=== PATIENT | female | born 1955 | race Caucasian/White ===

== ENCOUNTER 2017-06-22 10:53 | Inpatient (IN) | payer OTHER ==
[2017-06-22] MEDS ORDERED: SODIUM CHLORIDE 0.9% 500 ML IV STA (11:10)
--- NOTE | 2017-06-22 11:40 | ED ---
General Adult HPI - General Chief complaint: Altered Mental Status Stated complaint: Altered Mental status Time Seen by Provider: 06/22/17 10:55 Source: patient, EMS, RN notes reviewed Mode of arrival: EMS Limitations: no limitations - History of Present Illness Initial comments: This is a 61-year-old female with us past medical history significant for smoking. Patient states she was at home and she lost the ability to express her so she was able to get out a few words but was not able to complete a full sentence. Patient states this lasted for a good 15 or so minutes but never completely resolved. Patient states he continues even now she is taking longer to figure out the words to express herself even though she is able to eventually get those words out. Patient denies any slurred speech. Patient denies any headache patient denies any numbness or any weakness. Patient denies any visual disturbance. Patient denies any chest pain palpitations difficulty breathing shortness of breath. Patient denies abdominal pain patient denies nausea vomiting diarrhea. Patient denies any recent fever chills or cough. Patient denies any similar symptoms in the past. - Related Data Home Medications Medication Instructions Recorded Confirmed ALPRAZolam [Xanax] 0.5 mg PO TID PRN 06/22/17 06/22/17 Biotin 5 mg PO DAILY 06/22/17 06/22/17 Cholecalciferol [Vitamin D3] 1,000 unit PO DAILY 06/22/17 06/22/17 Allergies Allergy/AdvReac Type Severity Reaction Status Date / Time nitrofurantoin Allergy Rash/Hives Verified 06/22/17 11:27 [From Macrobid] Review of Systems ROS Statement: Those systems with pertinent positive or pertinent negative responses have been documented in the HPI. ROS Other: All systems not noted in ROS Statement are negative. Past Medical History Past Medical History: Cancer, GERD/Reflux, Hyperlipidemia, Osteoarthritis (OA) Additional Past Medical History / Comment(s): Breast Cancer 1994, lymphedema left arm History of Any Multi-Drug Resistant Organisms: None Reported Past Surgical History: Breast Surgery, Tonsillectomy Additional Past Surgical History / Comment(s): ACL repair on right knee, Breast Implants, Left sided mastectomy, colonoscopy Past Psychological History: Anxiety Smoking Status: Current every day smoker Past Alcohol Use History: Occasional General Exam - General Exam Comments Initial Comments: GENERAL: Patient is well-developed and well-nourished. Patient is nontoxic and well- hydrated and is in no acute distress. ENT: Neck is soft and supple. No significant lymphadenopathy is noted. Oropharynx is clear. Moist mucous membranes. Neck has full range of motion without eliciting any pain. EYES: The sclera were anicteric and conjunctiva were pink and moist. Extraocular movements were intact and pupils were equal round and reactive to light. Eyelids were unremarkable. PULMONARY: Unlabored respirations. Good breath sounds bilaterally. No audible rales rhonchi or wheezing was noted. CARDIOVASCULAR: There is a regular rate and rhythm without any murmurs gallops or rubs. ABDOMEN: Soft and nontender with normal bowel sounds. No palpable organomegaly was noted. There is no palpable pulsatile mass. SKIN: Skin is clear with no lesions or rashes and otherwise unremarkable. NEUROLOGIC: Patient is alert and oriented x3. Cranial nerves II through XII are grossly intact. Motor and sensory are also intact. Normal speech, volume and content. Symmetrical smile. Cerebellar testing is normal bilaterally MUSCULOSKELETAL: Normal extremities with adequate strength and full range of motion. LYMPHATICS: No significant lymphadenopathy is noted PSYCHIATRIC: Normal psychiatric evaluation. Normal interpersonal interactions appears functionally intact in deals appropriately with others. No signs of depression Limitations: no limitations Course Vital Signs 06/22/17 06/22/17 06/22/17 10:56 11:09 11:18 Temperature 96.8 F L Pulse Rate 67 66 70 Respiratory 16 16 16 Rate Blood Pressure 157/91 155/94 161/99 O2 Sat by Pulse 100 100 100 Oximetry 06/22/17 11:48 Temperature Pulse Rate 63 Respiratory 16 Rate Blood Pressure 155/93 O2 Sat by Pulse 100 Oximetry Medical Decision Making - Medical Decision Making EKG shows normal sinus rhythm at 67 bpm TX interval is 172 QRS is 88 QT interval 448 QTC is 473. Patient's EKG shows no ST segment elevation or depression or T wave abnormalities are noted. Patient's CAT scan of the head shows no acute abnormality. Chest x-ray shows no acute normalities. I spoke with Dr. Rutledge agreed to admit the patient admitted the patient I consult the neurology - Lab Data Result diagrams: 06/22/17 11:55 06/22/17 11:55 Lab Results 06/22/17 06/22/17 06/22/17 Range/Units 11:55 11:55 11:55 WBC 8.4 (3.8-10.6) k/uL RBC 4.99 (3.80-5.40) m/uL Hgb 14.6 (11.4-16.0) gm/dL Hct 46.4 H (34.0-46.0) % MCV 92.9 (80.0-100.0) fL MCH 29.2 (25.0-35.0) pg MCHC 31.5 (31.0-37.0) g/dL RDW 13.8 (11.5-15.5) % Plt Count 208 (150-450) k/uL Neutrophils % 64 % Lymphocytes % 29 % Monocytes % 4 % Eosinophils % 1 % Basophils % 1 % Neutrophils # 5.4 (1.3-7.7) k/uL Lymphocytes # 2.5 (1.0-4.8) k/uL Monocytes # 0.3 (0-1.0) k/uL Eosinophils # 0.1 (0-0.7) k/uL Basophils # 0.1 (0-0.2) k/uL PT 10.1 (9.0-12.0) sec INR 1.0 (<1.2) APTT 24.8 (22.0-30.0) sec Sodium 142 (137-145) mmol/L Potassium 4.2 (3.5-5.1) mmol/L Chloride 110 H (98-107) mmol/L Carbon Dioxide 24 (22-30) mmol/L Anion Gap 8 mmol/L BUN 10 (7-17) mg/dL Creatinine 0.75 (0.52-1.04) mg/dL Est GFR (MDRD) Af Amer >60 (>60 ml/min/1.73 sqM) Est GFR (MDRD) Non-Af >60 (>60 ml/min/1.73 sqM) Glucose 93 (74-99) mg/dL Calcium 9.7 (8.4-10.2) mg/dL Total Bilirubin 0.3 (0.2-1.3) mg/dL AST 25 (14-36) U/L ALT 28 (9-52) U/L Alkaline Phosphatase 87 (38-126) U/L Total Creatine Kinase (30-135) U/L CK-MB (CK-2) (0.0-2.4) ng/mL CK-MB (CK-2) Rel Index Troponin I (0.000-0.034) ng/mL Total Protein 6.8 (6.3-8.2) g/dL Albumin 4.0 (3.5-5.0) g/dL 06/22/17 Range/Units 11:55 WBC (3.8-10.6) k/uL RBC (3.80-5.40) m/uL Hgb (11.4-16.0) gm/dL Hct (34.0-46.0) % MCV (80.0-100.0) fL MCH (25.0-35.0) pg MCHC (31.0-37.0) g/dL RDW (11.5-15.5) % Plt Count (150-450) k/uL Neutrophils % % Lymphocytes % % Monocytes % % Eosinophils % % Basophils % % Neutrophils # (1.3-7.7) k/uL Lymphocytes # (1.0-4.8) k/uL Monocytes # (0-1.0) k/uL Eosinophils # (0-0.7) k/uL Basophils # (0-0.2) k/uL PT (9.0-12.0) sec INR (<1.2) APTT (22.0-30.0) sec Sodium (137-145) mmol/L Potassium (3.5-5.1) mmol/L Chloride (98-107) mmol/L Carbon Dioxide (22-30) mmol/L Anion Gap mmol/L BUN (7-17) mg/dL Creatinine (0.52-1.04) mg/dL Est GFR (MDRD) Af Amer (>60 ml/min/1.73 sqM) Est GFR (MDRD) Non-Af (>60 ml/min/1.73 sqM) Glucose (74-99) mg/dL Calcium (8.4-10.2) mg/dL Total Bilirubin (0.2-1.3) mg/dL AST (14-36) U/L ALT (9-52) U/L Alkaline Phosphatase (38-126) U/L Total Creatine Kinase 108 (30-135) U/L CK-MB (CK-2) 1.0 (0.0-2.4) ng/mL CK-MB (CK-2) Rel Index 0.9 Troponin I <0.012 (0.000-0.034) ng/mL Total Protein (6.3-8.2) g/dL Albumin (3.5-5.0) g/dL Disposition Clinical Impression: TIA (transient ischemic attack) Disposition: ADMITTED IP TO THIS HOSP Referrals: Gagandeep Mayen MD [Primary Care Provider] - 1-2 days Time of Disposition: 13:09
--- NOTE | 2017-06-22 11:45 | CT ---
EXAMINATION TYPE: CT brain wo con DATE OF EXAM: 06/22/2017 COMPARISON: NONE INDICATION: Patient complains of aphasia. DLP: 972 mGycm, Automated exposure control for dose reduction was used. CONTRAST: None CT of the brain is performed utilizing 3 mm thick sections through the posterior fossa and 3 mm thick sections through the remaining calvarium. Study is performed within 24 hours of arrival to the hosp ital. No abnormal hyperdensity is present to suggest an acute intracranial hemorrhage. No mass lesion is evident. No acute infarcts are evident. Ventricles and sulci are appropriate for the patient age. Paranasal sinuses and mastoid air cells within the [id number] are clear. There may be some edema arachnoid granulations within the posterior calvarium IMPRESSIONS: 1. Normal CT Brain
--- NOTE | 2017-06-22 11:59 | XR ---
EXAMINATION TYPE: XR chest 2V DATE OF EXAM: 06/22/2017 COMPARISON: NONE HISTORY: Altered mental status and weakness TECHNIQUE: Frontal and lateral views of the chest are obtained. FINDINGS: There is no focal air space opacity, pleural effusion, or pneumothorax seen. The cardiac silhouette size is within normal limits. The osseous structures are intact. There is pulmonary hype rinflation, flattening the diaphragms and increased anterior posterior diameter of the chest compatib le with underlying COPD. Possible pleural thickening is seen along the left lateral midlung. IMPRESSION: 1. No acute cardiopulmonary process. 2. Possible pleural thickening along the left lateral midlung. Nonemergent CT could be performed for further evaluation. 3. Radiographic sequela of COPD.
[2017-06-22 12:10] LABS: Basophils # (A) 0.1 k/uL (0-0.2); Basophils % (A) 1 %; Eosinophils # (A) 0.1 k/uL (0-0.7); Eosinophils % (A) 1 %; HCT 46.4 % (34.0-46.0); HGB 14.6 gm/dL (11.4-16.0); Lymphocytes # (A) 2.5 k/uL (1.0-4.8); Lymphocytes % (A) 29 %; MCH 29.2 pg (25.0-35.0); MCHC 31.5 g/dL (31.0-37.0); MCV 92.9 fL (80.0-100.0); Mean Platelet Volume 7.5; Monocytes # (A) 0.3 k/uL (0-1.0); Monocytes % (A) 4 %; Neutrophils # (A) 5.4 k/uL (1.3-7.7); Neutrophils % (A) 64 %; Platelet Count 208 k/uL (150-450); RBC 4.99 m/uL (3.80-5.40); RDW 13.8 % (11.5-15.5); WBC 8.4 k/uL (3.8-10.6)
[2017-06-22 12:26] LABS: ALT 28 U/L (9-52); AST 25 U/L (14-36); Alkaline Phosphatase 87 U/L (38-126); Anion Gap 8 mmol/L; Blood Urea Nitrogen 10 mg/dL (7-17); Calcium 9.7 mg/dL (8.4-10.2); Carbon Dioxide 24 mmol/L (22-30); Chloride 110 mmol/L (98-107); Glucose 93 mg/dL (74-99); Potassium 4.2 mmol/L (3.5-5.1); Sodium 142 mmol/L (137-145); Total Bilirubin 0.3 mg/dL (0.2-1.3); Total Protein 6.8 g/dL (6.3-8.2)
[2017-06-22 12:31] LABS: Creatine Kinase 108 U/L (30-135)
[2017-06-22 12:32] LABS: Partial Thromboplastin Time 24.8 sec (22.0-30.0); Prothrombin Time 10.1 sec (9.0-12.0)
[2017-06-22 12:44] LABS: Troponin I <0.012 ng/mL (0.000-0.034)
[2017-06-22] MEDS ORDERED: RX INFO: IV CONTRAST WAS GIVEN 1 EACH MISC MISCELLANE PRN (16:51)
--- NOTE | 2017-06-22 17:07 | P.CNNES ---
History of Present Illness Consult date: 06/22/17 History of Present Illness: Patient is a 61-year-old left-handed white female Who woke up with pressure behind the left eye this morning. She wakes up around 6 AM. She also noticed some left neck tenderness. She spoke to her daughter on 7:20 AM and her daughter noticed that her speech was not right. states she had difficulty finding the right words. She came to the emergency room room around 10:30 AM. She denies any headache dizziness or focal weakness numbness visual complaint. He denies having any such language disturbance in the past. She had a CAT scan of the brain in the emergency room which was negative. The patient and her states her speech has improved since this morning. However it is still not back to its normal baseline Review of Systems Constitutional: Denies chills, Denies fever Eyes: denies blurred vision, denies pain Cardiovascular: Denies chest pain, Denies shortness of breath Respiratory: Denies cough Musculoskeletal: Denies myalgias Neurological: Denies numbness, Denies weakness Psychiatric: Denies anxiety, Denies depression Past Medical History Past Medical History: Cancer, GERD/Reflux, Hyperlipidemia, Osteoarthritis (OA) Additional Past Medical History / Comment(s): Breast Cancer 1994, lymphedema left arm, osteoporsis, kidney stone. 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), bronchitis History of Any Multi-Drug Resistant Organisms: None Reported Past Surgical History: Breast Surgery, Tonsillectomy Additional Past Surgical History / Comment(s): Breast Implants 3 times on lt and once on rt, Left sided mastectomy, colonoscopy/polyp-benign, 2008 knee arthroscopy, 2012 rt knee arthroscopy/partial meniscectomy Past Anesthesia/Blood Transfusion Reactions: Postoperative Nausea & Vomiting ( PONV) Smoking Status: Current every day smoker - Past Family History Father Family Medical History: No Reported History Medications and Allergies Home Medications Medication Instructions Recorded Confirmed Type ALPRAZolam [Xanax] 0.5 mg PO TID PRN 06/22/17 06/22/17 History Biotin 5 mg PO DAILY 06/22/17 06/22/17 History Cholecalciferol [Vitamin D3] 1,000 unit PO DAILY 06/22/17 06/22/17 History Cyclobenzaprine [Flexeril] 5 mg PO HS PRN 06/22/17 06/22/17 History Diazepam [Valium] 5 mg PO BID PRN 06/22/17 06/22/17 History PARoxetine [Paxil] 10 mg PO DAILY 06/22/17 06/22/17 History Allergies Allergy/AdvReac Type Severity Reaction Status Date / Time nitrofurantoin Allergy Rash/Hives Verified 06/22/17 11:27 [From Macrobid] Physical Examination - Vital Signs Vital Signs: Vital Signs Temp Pulse Pulse Resp BP BP Pulse Ox 06/22/17 16:47 66 16 138/70 98 06/22/17 15:53 68 16 152/86 100 06/22/17 14:41 64 16 167/94 98 06/22/17 14:00 67 16 198/87 98 06/22/17 13:00 73 16 186/79 98 06/22/17 12:48 60 16 155/91 98 06/22/17 11:48 63 16 155/93 100 06/22/17 11:18 70 16 161/99 100 06/22/17 11:09 66 16 155/94 100 06/22/17 10:56 96.8 F L 67 16 157/91 100 Intake and Output 06/22/17 06/22/17 06/22/17 06:59 14:59 22:59 Other: Weight 55.338 kg Patient Weight 06/23/17 06:59 Weight 55.338 kg - Constitutional General appearance: thin - EENT EENT: PERRL, hearing intact, vision intact - Respiratory Respiratory: lungs clear - Cardiovascular Cardiovascular: regular rate, normal S1, normal S2 - Integumentary Integumentary: normal - Neurologic Cranial nerve examination: PERRL, EOMI, VFF, V1/V2/V3 grossly intact (Mild expressive aphasia), face symmetric, tongue midline Detailed motor examination: grossly full strength in all extremities Detailed sensory examination: intact Reflexes: 2+: knee - Psychiatric Psychiatric: mood/affect appropriate Results - Laboratory Findings CBC and BMP: 06/22/17 11:55 06/22/17 11:55 Abnormal Lab Findings: Abnormal Labs 06/22/17 06/22/17 11:55 11:55 Hct 46.4 H Chloride 110 H Assessment and Plan (1) Stroke Current Visit: Yes Status: Acute SNOMED Code(s): 095028655 Plan: The patient has been admitted to the hospital with speech disturbance. On neurologic examination the patient has a mild expressive aphasia. For the most part her speech is fluent however she has moments of hesitant speech The patient may have had a left subcortical infarct. Recommend start aspirin 325 mg daily. Recommend CTA of the neck and head. Recommend echocardiogram. Recommend MRI scan of the brain with and without gadolinium. Continue close neuro checks. The patient's main risk factor for stroke is [id number] history of smoking.
[2017-06-22] MEDS: ASPIRIN 325 MG TAB PO SCH (17:19)
[2017-06-22] MEDS ORDERED: ALPRAZolam 0.5 MG TAB PO PRN (20:18)
--- NOTE | 2017-06-22 20:35 | CT ---
EXAMINATION TYPE: CT angio head neck DATE OF EXAM: 06/22/2017 HISTORY: Patient complains of aphasia COMPARISON: NONE CT DLP: 252.4 mGycm. Automated Exposure Control for Dose Reduction was Utilized. TECHNIQUE: CTA scan of the neck is performed with IV Contrast, patient injected with 65 mL of Omnipa que 350, axial images are obtained, coronal and sagittal reformatted images are reviewed. Three-D rec onstructed images are created on an independent workstation and reviewed. FINDINGS: There is normal branching pattern of the great vessels on the aortic arch. There is bilateral arteria l flow in the vertebral arteries. There is arterial flow in the common internal and external carotid arteries. There is no evidence of aneurysm or dissection. The carotid artery bifurcations appear wide ly patent. There is arterial flow in the vertebrobasilar artery system. There is arterial flow in the anterior m iddle and posterior cerebral arteries. There is no mass effect. There is no sign of aneurysm or neova scularity. There is normal contrast opacification of the venous sinuses. There is no sign of intracra nial arterial stenosis. Basilar artery appears to fill mostly from the left side. IMPRESSION: Negative CT angiogram of the brain. Negative CT angiogram of the neck.
--- NOTE | 2017-06-22 21:43 | MR ---
EXAMINATION TYPE: MR brain wo/w con DATE OF EXAM: 06/22/2017 COMPARISON: NONE HISTORY: Slurred speech TECHNIQUE: Multiplanar, multisequence images of the brain and brainstem is performed without and with IV contras t, utilizing 5 mL mL intravenous Gadavist . FINDINGS: Ventricles of normal size. There is no mass effect nor midline shift. There is no sign of intracrania l hemorrhage. On the FLAIR images there are bilateral pontine 5 mm foci of increased signal. There ar e scattered foci of increased signal on the FLAIR images at the aguilar-white matter junction of both ce rebral hemispheres. These measure up to 6 mm and the total numbers less than 10. I do not see definit e involvement of the corpus callosum. The sella turcica appears normal. I see no pathologic enhancement. There is normal contrast enhanceme nt of the venous sinuses as well as the anterior middle and posterior cerebral arteries. There is art erial flow in the basilar artery. Left vertebral artery is larger than the right. IMPRESSION: There are scattered white matter foci in the cerebral hemispheres probably due to small v essel ischemia. There is 2 foci in the dora that are also suggestive of small vessel ischemia. No evidence of a corti gautam infarct. Demyelinating diseases in the differential diagnosis.
[2017-06-22] MEDS: cefTRIAXone IN SWFI 1,000 MG/10 ML SYRINGE IVP SCH (22:50)
[2017-06-22] MEDS: DIAZEPAM 5 MG TAB PO PRN (22:57)
[2017-06-22] MEDS: CYCLOBENZAPRINE 5 MG TAB PO PRN (23:47)
[2017-06-23 06:57] LABS: Cholesterol 189 mg/dL (<200); HDL Cholesterol 58 mg/dL (40-60); LDL Cholesterol,Calculated 117 mg/dL (0-99); Triglycerides 68 mg/dL (<150)
[2017-06-23] MEDS: PARoxetine 10 MG TAB PO SCH (07:59)
[2017-06-23] MEDS: ASPIRIN 325 MG TAB PO SCH (07:59)
[2017-06-23] MEDS: ENOXAPARIN 40 MG/0.4 ML SYRINGE SQ SCH (07:59)
[2017-06-23] MEDS: CHOLECALCIFEROL 1,000 UNIT TAB PO SCH (08:00)
[2017-06-23] MEDS ORDERED: NON-FORMULARY DRUG (Biotin [Biotin] 5 MG) PO SCH (09:00)
--- NOTE | 2017-06-23 10:37 | P.HPIM ---
History of Present Illness H&P Date: 06/22/17 Chief Complaint: Left-sided weakness, difficulty finding words HISTORY OF PRESENT ILLNESS: 61-year-old female patient Dr. Mayen with chronic stable medical conditions that includeanxiety ,breast cancer, left arm lymphedema, osteoporosis, kidney stones GERD, hyperlipidemia, osteoarthritis who presents to the emergency departmentafter she woke up with pressure behind her left eye this morning. She woke up about 6 AM, noticed some left neck tenderness. With her daughters to do a babysitting date and her daughter noticed that her speech was not right. Primarily unable to find the right words to say. Presented to the emergency department around 10:30 AM and her symptoms had improved since earlier this morning however she still not back to her baseline.admitted for a stroke. REVIEW OF SYSTEMS GEN.: [ Tired] EYES: [None] HEENT: [Headache] NECK: [Occipital tenderness] RESPIRATORY: [Some shortness of breath, cough with sputum production] CARDIOVASCULAR: [None] GASTROINTESTINAL: [Constipation] GENITOURINARY: [None] MUSCULOSKELETAL: [Back pain] LYMPHATICS: [None] HEMATOLOGICAL: [None] PSYCHIATRY: [None] NEUROLOGICAL: [None] PAST MEDICAL HISTORY Past medical history: breast cancer, left arm lymphadenopathy, osteoporosis, kidney stones, GERD, hyperlipidemia, osteoarthritis. Past surgical history: breast implants 3 on the left and once on the right. Left-sided mastectomy, colonoscopy polypectomy benign, right knee arthroscopically partial meniscsectomy Past psychological history: anxiety SOCIAL HISTORY: Additional psychological/social history:none Smoking use history: current every day smoker, 1 pack per day 40 years, currently half pack per day Alcohol use history: occasional Drug use history: denies Marital status: Living situation:lives with Work history:currently disabled unable to work due to her lymphadenopathy FAMILY HISTORY: reviewed noncontributory to current presentation ALLERGIES: NITROFURANTOIN HOME MEDICATION: Paxil 10 mg daily Diazepam 5 mg by mouth twice a day Flexeril 5 mg by mouth at bedtime when necessary Alprazolam 0.5 mg by mouth 3 times a day when necessary. Cholecalciferol 1000 units by mouth daily Biotin 5 mg by mouth daily. VITAL SIGNS: [ temperature 97.0, pulse 69, respiratory rate 16, blood pressure 164/92, oxygen saturation 99% on room air BMI 20.2] GENERAL: [thin built, sitting up, somewhat anxious appearing]. EYES: [Pupils equal. Conjunctiva damari]l. HENT: [Normocephalic,External appearance of nose and ears normal, oral cavity grossly normal]. NECK: [JVD not raised; masses not palpable]. HEART: [First and second heart sounds are normal; no edema]. LUNGS:[ Respiratory rate normal; diminished to auscultation]. ABDOMEN: [Soft, nontender, liver spleen not palpable, no masses palpable]. LYMPHATICS: [No lymph nodes palpable in the axilla and neck]. PSYCH: [Alert and oriented x3; mood and affect damari]l. NEUROLOGICAL: [Cranial nerves grossly intact; no facial asymmetry, power and sensation grossly intact, has difficulty finding words has to think about certain words has hesitation, some expressive aphasia MUSCULOSKELETAL: Left medial forearm with reddened area around the elbow, warm tender and diffuse.]. INVESTIGATIONS: LABS: LDL cholesterol 117 brain MRI: Scattered white matter foci in the cerebral hemispheres probably due to small vessel ischemia. ASSESSMENT: -Acute stroke likely left subcortical infarct -Anxietydepression not otherwise specified -Chronic nicotine dependence patient is a current smoker -left arm lymphedema secondary to breast cancer and left mastectomy, causing cellulitis. PLAN: home medications reordered consultation to neurology with follow-up labs MRI, speech evaluation and PT OT evaluation.physical exam was being completed patient developed left medial forearm redness around the elbow area ipatient states that this happens frequently about once a monthand she sees Dr. Mayen received a Rocephin shot. Rocephin ordered. plan of care discussed with the patient at the bedside.We'll continue to follow very closely. ONCOLOGY SOCIAL WORKER STATEMENT: Patient was seen and examined by nurse practitioner Yamileth Young and all elements of the case were discussed with attending Dr. Mejia. Past Medical History Past Medical History: Cancer, GERD/Reflux, Hyperlipidemia, Osteoarthritis (OA) Additional Past Medical History / Comment(s): Breast Cancer 1994, lymphedema left arm, osteoporsis, kidney stone. 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), bronchitis History of Any Multi-Drug Resistant Organisms: None Reported Past Surgical History: Breast Surgery, Tonsillectomy Additional Past Surgical History / Comment(s): Breast Implants 3 times on lt and once on rt, Left sided mastectomy, colonoscopy/polyp-benign, 2009 knee arthroscopy, 2013 rt knee arthroscopy/partial meniscectomy Past Anesthesia/Blood Transfusion Reactions: Postoperative Nausea & Vomiting ( PONV) Smoking Status: Current every day smoker - Past Family History Father Family Medical History: No Reported History Medications and Allergies Home Medications Medication Instructions Recorded Confirmed Type ALPRAZolam [Xanax] 0.5 mg PO TID PRN 06/22/17 06/22/17 History Biotin 5 mg PO DAILY 06/22/17 06/22/17 History Cholecalciferol [Vitamin D3] 1,000 unit PO DAILY 06/22/17 06/22/17 History Cyclobenzaprine [Flexeril] 5 mg PO HS PRN 06/22/17 06/22/17 History Diazepam [Valium] 5 mg PO BID PRN 06/22/17 06/22/17 History PARoxetine [Paxil] 10 mg PO DAILY 06/22/17 06/22/17 History Allergies Allergy/AdvReac Type Severity Reaction Status Date / Time nitrofurantoin Allergy Rash/Hives Verified 06/22/17 11:27 [From Macrobid] Physical Exam Vitals: Vital Signs Temp Pulse Pulse Resp BP BP Pulse Ox 06/22/17 16:47 66 16 138/70 98 06/22/17 15:53 68 16 152/86 100 06/22/17 14:41 64 16 167/94 98 06/22/17 14:00 67 16 198/87 98 06/22/17 13:00 73 16 186/79 98 06/22/17 12:48 60 16 155/91 98 06/22/17 11:48 63 16 155/93 100 06/22/17 11:18 70 16 161/99 100 06/22/17 11:09 66 16 155/94 100 06/22/17 10:56 96.8 F L 67 16 157/91 100 Intake and Output 06/22/17 06/22/17 06/22/17 06:59 14:59 22:59 Intake Total 220 Balance 220 Intake: Oral 220 Other: Weight 55.338 kg Patient Weight 06/23/17 06:59 Weight 55.338 kg Results CBC & Chem 7: 06/22/17 11:55 06/22/17 11:55 Labs: Abnormal Lab Results - Last 24 Hours (Table) 06/22/17 06/22/17 Range/Units 11:55 11:55 Hct 46.4 H (34.0-46.0) % Chloride 110 H (98-107) mmol/L
[2017-06-23] MEDS: DIAZEPAM 5 MG TAB PO PRN ×2 (12:18→19:51)
--- NOTE | 2017-06-23 19:37 | P.PN ---
Subjective Progress Note Date: 06/23/17 The patient is a 61-year-old woman was admitted to the hospital yesterday with expressive aphasia. She is doing better today. Her speech is more fluent. She had an MRI of the brain which was consistent with small vessel ischemia. He also had a CTA of the head and neck which was negative. She has been placed on aspirin. The patient has no new complaints. He denies any weakness numbness visual changes or dizziness. Objective - Vital Signs Vital signs: Vital Signs Temp 97.7 F 06/23/17 16:00 Pulse 98 06/23/17 16:00 Resp 16 06/23/17 16:00 BP 92/57 06/23/17 16:00 Pulse Ox 97 06/23/17 12:00 Intake & Output 06/23/17 06/23/17 06/24/17 06:59 18:59 06:59 Intake Total 50 684 Balance 50 684 Weight 56.8 kg Intake: IV 50 cefTRIAXone 1,000 mg In 50 Sodium Chloride 0.9% 50 ml @ 100 mls/hr IVPB Q24HR COUNTS INCLUDE 234 BEDS AT THE [facility] Rx#:[id number] Oral 684 Other: Voiding Method Toilet Toilet # Voids 2 3 - Constitutional General appearance: Present: average body habitus - EENT Eyes: Present: PERRLA ENT: Present: hearing grossly normal - Respiratory Respiratory: bilateral: CTA - Cardiovascular Rhythm: regular - Neurologic Neurologic Comment(s): Mental status she was awake alert and oriented her speech was fluent. There is no a aphasia or dysarthria and she had some difficulty with repetition Neurologic: Present: CNII-XII intact - Musculoskeletal Musculoskeletal: Present: strength equal bilaterally - Psychiatric Psychiatric: Present: A&O x's 3 - Labs CBC & Chem 7: 06/22/17 11:55 06/22/17 11:55 Labs: Abnormal Lab Results - Last 24 Hours (Table) 06/23/17 Range/Units 06:01 LDL Cholesterol, Calc 117 H (0-99) mg/dL Assessment and Plan (1) Stroke Current Visit: Yes Status: Acute SNOMED Code(s): 089540025 Plan: The patient has improved since yesterday with her speech. There is the less hesitancy. Her speech is more fluent. She has been placed on aspirin. CT angiogram was negative. MRI of the brain showed small vessel ischemia. Her primary risk factor for stroke is smoking. We are awaiting echocardiogram results.
[2017-06-23] MEDS: cefTRIAXone IN SWFI 1,000 MG/10 ML SYRINGE IVP SCH (19:51)
[2017-06-23] MEDS ORDERED: DOCUSATE 100 MG CAP PO PRN (22:11)
[2017-06-23] MEDS: CYCLOBENZAPRINE 5 MG TAB PO PRN (22:12)
[2017-06-24 06:37] VITALS: RESP 18
--- NOTE | 2017-06-24 07:16 | PN ---
PROGRESS NOTE DATE OF SERVICE: 06/23/17. PRESENTING COMPLAINT: Difficulty finding words. INTERVAL HISTORY: Patient admitted with acute stroke in the speech area. Speech is getting better but still finding some trouble with words, otherwise no other focal symptoms. Workup is in place. Tolerating a diet, up to the bathroom. The patient is a smoker. REVIEW OF SYSTEMS: Done for constitutional, cardiovascular, GI, pulmonary and neuro; relevant findings as above. CURRENT MEDICATIONS: Reviewed that include aspirin, Lovenox, Paxil. PHYSICAL EXAMINATION: Temperature 98.2, pulse 74, respirations 16, blood pressure 105/64, pulse ox 99% on room air. LUNGS: Decreased breath sounds. CARDIOVASCULAR: First and second sounds, no edema. ABDOMEN: Soft, nontender. Liver and spleen not palpable. PSYCHIATRY: Alert and oriented x3. Mood and affect normal. EYES: Pupils equal. Conjunctivae normal. NEURO: Nil focal except speech, some occasionally finding difficulty finding words. HEENT: External appearance of nose and ears normal. Oral cavity normal. INVESTIGATIONS: LDL 117. ASSESSMENT: 1. Acute stroke in the Broca's area which is normally in the right side that is the right MCA territory, likely ischemic in nature. 2. Chronic nicotine dependence. Patient is a cigarette smoker. 3. Dysarthria acute from above. 4. Chronic obstructive pulmonary disease in a current smoker. 5. Gastroesophageal reflux disease. 6. Left arm lymphedema. 7. Osteoporosis. 8. Anxiety, not otherwise specified. PLAN: Patient to continue on aspirin, add Lipitor. Nicotine patch will be added. Smoke cessation counseling was done with the patient at least 3 minutes. The patient does understand the importance of stopping smoking more than 3 minutes were spent on this aspect. MMODL / IJN: [id number] /
--- NOTE | 2017-06-24 08:18 | ECHOF ---
Referral Reason:Stroke MEASUREMENTS -------- HEIGHT: 167.6 cm WEIGHT: 56.7 kg BP: 138/70 RVIDd: 2.8 cm (< 3.3) IVSd: 1.0 cm (0.6 - 1.1) LVIDd: 3.5 cm (3.9 - 5.3) LVPWd: 1.1 cm (0.6 - 1.1) IVSs: 1.5 cm LVIDs: 2.3 cm LVPWs: 1.3 cm LA Diam: 2.9 cm (2.7 - 3.8) LAESV Index (A-L): 13.43 ml/m Ao Diam: 3.3 cm (2.0 - 3.7) AV Cusp: 2.6 cm (1.5 - 2.6) MV EXCURSION: 20.304 mm (> 18.000) MV EF SLOPE: 73 mm/s (70 - 150) EPSS: 0.2 cm MV E Lonny: 0.68 m/s MV DecT: 346 ms MV A Lonny: 0.70 m/s MV E/A Ratio: 0.98 RAP: 5.00 mmHg RVSP: 24.48 mmHg FINDINGS -------- Sinus rhythm. This was a technically good study. The left ventricular size is normal. Left ventricular wall thickness is normal. Overall left vent ricular systolic function is normal with, an EF between 60 - 65 %. The right ventricle is normal in size. The left atrial size is normal. The right atrium is normal in size. The aortic valve is trileaflet and appears structurally normal. The mitral valve leaflets are mildly thickened. Mild tricuspid regurgitation present. Right ventricular systolic pressure is normal at < 35 mmHg. The pulmonic valve was not well visualized. The aortic root size is normal. Normal inferior vena cava with normal inspiratory collapse consistent with estimated right atrial pre ssure of 5 mmHg. There is no pericardial effusion. CONCLUSIONS -------- 1. Sinus rhythm. 2. This was a technically good study. 3. The left ventricular size is normal. 4. Left ventricular wall thickness is normal. 5. Overall left ventricular systolic function is normal with, an EF between 60 - 65 %. 6. The right ventricle is normal in size. 7. The left atrial size is normal. 8. The right atrium is normal in size. 9. The aortic valve is trileaflet and appears structurally normal. 10. The mitral valve leaflets are mildly thickened. 11. Mild tricuspid regurgitation present. 12. Right ventricular systolic pressure is normal at < 35 mmHg. 13. The pulmonic valve was not well visualized. 14. The aortic root size is normal. 15. Normal inferior vena cava with normal inspiratory collapse consistent with estimated right atrial pressure of 5 mmHg. 16. There is no pericardial effusion. BATCH MIXING TRUCK DRIVER: Angela Katz RDCS
[2017-06-24] MEDS: ENOXAPARIN 40 MG/0.4 ML SYRINGE SQ SCH (08:40)
[2017-06-24] MEDS: CHOLECALCIFEROL 1,000 UNIT TAB PO SCH (08:41)
[2017-06-24] MEDS: ASPIRIN 325 MG TAB PO SCH (08:41)
[2017-06-24] MEDS: PARoxetine 10 MG TAB PO SCH (08:41)
[2017-06-24] MEDS ORDERED: ATORVASTATIN 40 MG TAB PO SCH (09:00)
[2017-06-24] MEDS ORDERED: NICOTINE 21MG/24HR PATCH TRANSDERM SCH (09:00)
[2017-06-24 09:12] VITALS: PULSE 72
[2017-06-24] MEDS: DIAZEPAM 5 MG TAB PO PRN (11:08)
[2017-06-24 11:28] VITALS: BP 98/63; TEMP 97.6
--- NOTE | 2017-06-25 08:17 | DS ---
DISCHARGE SUMMARY DATE OF ADMISSION: 06/22/2017 DATE OF DISCHARGE: 06/24/2017 FINAL DIAGNOSES: 1. Acute stroke in the Broca's area, likely ischemic in nature in a right-handed patient. 2. Chronic nicotine dependence, patient is a cigarette smoker. 3. Acute dysarthria from above. 4. Chronic obstructive pulmonary disease in a current smoker. 5. Gastroesophageal reflux disease. 6. Chronic left arm lymphedema. 7. Osteoporosis. 8. Anxiety, not otherwise specified. HOSPITAL COURSE: This patient presented with a stroke affecting her speech, still not back to her baseline, trouble getting some words. The patient is very reluctant to get speech therapy. Also patient is very reluctant to take Lipitor, worried about side affects. I did have a lengthy talk with the patient, but she still seems to be rather reserved about the same. I also spoke to Dr. Baldwin and did express my concerns about her not taking her medications. On examination, speech is slightly slow. LUNGS: Slightly decreased breath sounds. The patient advised and counseling against smoking. The patient LDL did come back at 117. Patient's CT scan of the brain, CT angio, brain MRA showed some chronic changes. The 2-D echo showed preserved LV function. CONSULTATION: Dr. Estela Baldwin. Discussion and discharge planning more than 35 minutes. DISCHARGE MEDICATIONS: 1. Xanax 0.5 p.o. t.i.d. p.r.n. 2. Biotin 5 mg p.o. daily. 3. Vitamin D3, 1000 units p.o. daily. 4. Flexeril 5 mg q.h.s. 5. Valium 5 mg p.o. b.i.d. p.r.n. 6. Paxil 10 mg p.o. daily. 7. Aspirin 81 mg p.o. daily. 8. Lipitor 40 mg p.o. daily. 9. Nicotine 21 mg patch. Follow up with Dr. Baldwin in 10 days. Follow up with Dr. Mayen in 3 days. Outpatient speech therapy to be done. MMPATYL / JESSIKAN: [id number] /
== END 2017-06-24 15:59 | disposition home or self-care (01) | DRG 66 ==
LOC: EC 10:53 → 6SEL 13:09
PROVIDERS: ADMIT Hospitalist; ATTEND Hospitalist
DX: I63.9 Cerebral infarction, unspecified (principal); E78.5 Hyperlipidemia, unspecified; R47.1 Dysarthria and anarthria; F17.210 Nicotine dependence, cigarettes, uncomplicated; F41.9 Anxiety disorder, unspecified; I89.0 Lymphedema, not elsewhere classified; J44.9 Chronic obstructive pulmonary disease, unspecified; K21.9 Gastro-esophageal reflux disease without esophagitis; M19.90 Unspecified osteoarthritis, unspecified site; M81.0 Age-related osteoporosis without current pathological fracture; F32.9 Major depressive disorder, single episode, unspecified; Z79.899 Other long term (current) drug therapy; Z85.3 Personal history of malignant neoplasm of breast; Z87.442 Personal history of urinary calculi; Z88.1 Allergy status to other antibiotic agents
CPT/HCPCS: 36415; 70450; 70496; 70498; 70553; 71046; 80053; 80061; 82550; 82553; 84484; 85025; 85610; 85730; 93005; 93306; 96360; 99285

== ENCOUNTER → 2020-12-17 | Outpatient (CLI) | payer OTHER ==
--- NOTE | 2020-12-19 20:13 | PE ---
EXAMINATION TYPE: PET CT fusion skull to thigh DATE OF EXAM: 12/17/2020 COMPARISON: Outside chest CT October 25, 2020, outside report is not available. HISTORY: Abnormal CT, solitary pulmonary nodule. TECHNIQUE: Following the intravenous administration of 10.94 mCi of F-18 FDG, whole body images are performed from the skull base to the midthigh. Images are reviewed on the computer in the coronal, a xial, and sagittal planes. Reconstructed rotating images are created on independent workstation and reviewed on the computer. A localization and attenuation correction CT is performed in conjunction with the PET scan. Blood glucose level equals 83. SCAN: Initial Scan FINDINGS: SKULL BASE AND NECK: No areas of abnormal hypermetabolic uptake. CHEST, MEDIASTINUM, AND HILAR REGION: Mild underlying emphysematous change redemonstrated. Persistent 8 x 6 mm right mid to lower lung nodule axial image 101, this is ametabolic. No areas of abnormal hy permetabolic uptake. ABDOMEN AND PELVIS: Normal excretion. No adrenal masses. Asymmetric diminished size and cortical thin susi to right kidney redemonstrated. No areas of abnormal hypermetabolic uptake. OSSEOUS STRUCTURES: No areas of abnormal hypermetabolic uptake. OTHER CT: Asymmetric enlarged left breast implant with internal linear density suggesting intracapsul ar rupture redemonstrated. Right breast implant redemonstrated. Postsurgical change at level of the atrial septum redemonstrated. Coronary artery calcification redem onstrated. Mild to moderate calcified plaque of the abdominal aorta. Underlying scoliotic curvature. IMPRESSION: No suspicious hypermetabolic uptake to suggest neoplasm. Short-term follow-up CT in 6-12 months advised to document stability.
== END | disposition home or self-care (01) ==
LOC: RADPETMAIN 11:50
PROVIDERS: ATTEND Internal Medicine
DX: R91.1 Solitary pulmonary nodule (principal)
CPT/HCPCS: 78815; A9552

== ENCOUNTER 2021-05-01 13:41 | Emergency (ER) | payer MEDICARE, OTHER ==
[2021-05-01] MEDS ORDERED: ONDANSETRON 4 MG/2 ML VIAL IVP STA (14:40)
[2021-05-01] MEDS ORDERED: SODIUM CHLORIDE 0.9% 1,000 ML IV STA (14:40)
--- NOTE | 2021-05-01 14:46 | ED ---
General Adult HPI - General Chief complaint: Upper Respiratory Infection Stated complaint: Covid +, back pain Time Seen by Provider: 05/01/21 14:24 Source: patient Mode of arrival: ambulatory Limitations: no limitations - History of Present Illness Initial comments: 65-year-old female presents to the emergency Department with complaints of cough and positive COVID test. Patient states her symptoms began on , then tested positive yesterday. He reports persistent nausea and cough, but denies shortness of breath or difficulty breathing. Patient states she did speak with her family doctor who recommended that she be seen for the monoclonal antibody infusion. Patient states she has a known right lung nodule and had a computed tomography scan done at [facility] on Sunday. States she is awaiting follow-up with her PCP regarding the findings. Complains of right sided thoracic back pain in the area of the nodule; denies injury. Patient states she took a Valium prior to arrival with improvement but is concerned about pneumonia. Denies fever, chills, headache, Chest pain, shortness of breath, abdominal pain, vomiting, diarrhea, dysuria, or hematuria. - Related Data Home Medications Medication Instructions Recorded Confirmed ALPRAZolam [Xanax] 0.5 mg PO TID PRN 06/22/17 06/22/17 Biotin 5 mg PO DAILY 06/22/17 06/22/17 Cholecalciferol [Vitamin D3 (25 1,000 unit PO DAILY 06/22/17 06/22/17 Mcg = 1000 Iu)] Cyclobenzaprine [Flexeril] 5 mg PO HS PRN 06/22/17 06/22/17 PARoxetine [Paxil] 10 mg PO DAILY 06/22/17 06/22/17 diazePAM [Valium] 5 mg PO BID PRN 06/22/17 06/22/17 Previous Rx's Medication Instructions Recorded Aspirin 81 mg PO DAILY #1 chewable 06/24/17 Atorvastatin [Lipitor] 40 mg PO DAILY #30 tab 06/24/17 Nicotine 21Mg/24Hr Patch [Habitrol] 1 patch TRANSDERM DAILY #30 patch 06/24/17 Allergies Allergy/AdvReac Type Severity Reaction Status Date / Time nitrofurantoin Allergy Rash/Hives Verified 05/01/21 14:16 [From Macrobid] Review of Systems ROS Statement: Those systems with pertinent positive or pertinent negative responses have been documented in the HPI. ROS Other: All systems not noted in ROS Statement are negative. Past Medical History Past Medical History: Cancer, GERD/Reflux, Hyperlipidemia, Osteoarthritis (OA) Additional Past Medical History / Comment(s): Breast Cancer 1994, lymphedema left arm, osteoporsis, kidney stone. 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), bronchitis History of Any Multi-Drug Resistant Organisms: None Reported Past Surgical History: Breast Surgery, Tonsillectomy Additional Past Surgical History / Comment(s): Breast Implants 3 times on lt and once on rt, Left sided mastectomy, colonoscopy/polyp-benign, 2008 knee arthroscopy, 2013 rt knee arthroscopy/partial meniscectomy Past Anesthesia/Blood Transfusion Reactions: Postoperative Nausea & Vomiting (PONV) Past Psychological History: Anxiety Past Alcohol Use History: Occasional Past Drug Use History: None Reported - Past Family History Father Family Medical History: No Reported History General Exam Limitations: no limitations (Well-developed, well-nourished female in no acute distress. Initial temperature 90.8, pulse 70, respirations 18, blood pressure 114/79, pulse ox 100% on room air.) General appearance: alert, in no apparent distress ENT exam: Present: normal exam, normal oropharynx, mucous membranes moist Respiratory exam: Present: normal lung sounds bilaterally, chest wall tenderness (Right posterior chest wall tenderness upon palpation around ribs 6-10). Absent: respiratory distress, wheezes, rales, rhonchi, stridor Cardiovascular Exam: Present: regular rate, normal rhythm, normal heart sounds. Absent: systolic murmur, diastolic murmur, rubs, gallop, clicks GI/Abdominal exam: Present: soft, normal bowel sounds. Absent: distended, tenderness, guarding, rebound, rigid Back exam: Present: normal inspection, full ROM. Absent: CVA tenderness (R), CVA tenderness (L), paraspinal tenderness, vertebral tenderness Neurological exam: Present: alert, oriented X3, CN II-XII intact Psychiatric exam: Present: normal affect, normal mood Skin exam: Present: warm, dry, intact, normal color. Absent: rash Course Vital Signs 05/01/21 05/01/21 05/01/21 14:13 15:11 16:20 Temperature 98 F 98.3 F Pulse Rate 70 62 62 Respiratory 18 20 Rate Blood Pressure 114/79 126/80 O2 Sat by Pulse 100 99 98 Oximetry 05/01/21 17:21 Temperature Pulse Rate 69 Respiratory 20 Rate Blood Pressure 133/80 O2 Sat by Pulse 99 Oximetry Medical Decision Making - Medical Decision Making This is a 65-year-old Covid positive female with a past medical history of CVA, breast cancer, and lung nodule, who presents to the emergency department for evaluation of congested cough. States she tested positive on Sunday, with symptoms occurring the day prior. Upon exam, patient is well-appearing with no increased work of breathing. She is afebrile, not tachycardic, nor tachypneic. SpO2 is 98-100% on room air. Chest x-ray was obtained and shows no acute process though evidence of underlying COPD. Patient does have a follow-up appointment with her PCP scheduled this week regarding the lung nodule that was found on CT earlier this week at another facility. Patient provides documentation of positive test; this was emailed to the appropriate person. Discussed the option of monoclonal antibody infusion with patient and she is agreeable. Patient tolerated the infusion without any adverse effect. Patient will be discharged home to follow up with her PCP as scheduled. Return parameters were discussed in detail. Patient verbalizes understanding and agrees with this plan. The patient's care was discussed with my attending Dr. Trammell. - Radiology Data Radiology results: report reviewed, image reviewed Two-view chest x-ray was obtained. Report was reviewed in its entirety. Impression per Dr. Rossi is there is evidence of COPD. No acute lung disease. There is a right-sided pulmonary nodule that is likely a granuloma. Disposition Clinical Impression: COVID-19, Lung abnormality Disposition: HOME SELF-CARE Condition: Stable Instructions (If sedation given, give patient instructions): Coronavirus Disease 2019 (COVID-19) Additional Instructions: Rest. Plenty of fluids. Take vitamin C, D, and Zinc. Review should quarantine for 10 days from symptom onset. Called your PCP to schedule follow-up for lung nodule. Return to the emergency department with any new, worsening, or concerning symptoms. Is patient prescribed a controlled substance at d/c from ED?: No Referrals: Gaganedep Mayen MD [Primary Care Provider] - 1-2 days Time of Disposition: 17:20
[2021-05-01] MEDS ORDERED: BAMLANIVIMAB (EUA) 700 MG, ETESEVIMAB (EUA) 1,400 MG in SODIUM CHLORIDE 0.9% 50 ML IVPB ONE (15:30)
[2021-05-01] MEDS ORDERED: SODIUM CHLORIDE 0.9% 50 ML IVPB ONE (15:30)
--- NOTE | 2021-05-01 15:36 | XR ---
EXAMINATION TYPE: XR chest 2V DATE OF EXAM: 05/01/2021 COMPARISON: NONE HISTORY: Altered mental status. TECHNIQUE: 2 views FINDINGS: Heart is normal. Lungs are clear of consolidation. There are clips at the left axilla. Ther e is old left side healed rib fractures. There is flattening of the diaphragm. There is previous card iac surgery. There is a 7 mm nodular density right midlung field that is relatively dense and could b e a granuloma. IMPRESSION: There is evidence of COPD. No acute lung disease. There is new right-sided pulmonary nodu le that is likely a granuloma.
[2021-05-01 16:22] VITALS: RESP 20; TEMP 98.3
[2021-05-01 17:21] VITALS: BP 133/80; PULSE 69
== END 2021-05-01 17:27 | disposition home or self-care (01) ==
LOC: EC 13:41
DX: U07.1 COVID-19 (principal); Q33.9 Congenital malformation of lung, unspecified; Z88.8 Allergy status to other drugs, medicaments and biological substances; M19.90 Unspecified osteoarthritis, unspecified site; Z79.899 Other long term (current) drug therapy
CPT/HCPCS: 71046; 99283; 96374; 96361; J2405; J3490

== ENCOUNTER → 2022-01-30 | Outpatient (CLI) | payer MEDICARE ==
--- NOTE | 2022-01-30 10:48 | MR ---
EXAMINATION TYPE: MR cervical spine wo con DATE OF EXAM: 01/30/2022 INDICATION: Patient age:Female; 66 years old; Reason for study: M54.12 RADICULOPATHY, CERVICAL REGION. RADICULOPATHY, CERVICAL REGION COMPARISON: None. TECHNIQUE: Multi planar, multi sequence imaging was performed utilizing: T1-weighted, T2-weighted. IV Contrast: None FINDINGS: Alignment: The cervical vertebral bodies have preserved heights. Alignment is within normal limits gi melvin patient positioning. Bones: Scattered Modic endplate changes are noted T1-T2 high T2/low T1 signal left synovial cyst with in the foramen partially visualized on sagittal imaging only. Multilevel degenerative disc disease is noted and most pronounced at the C5-C6 and C6-C7. vertebral levels. Cord: The spinal cord is unremarkable with regards to their signal intensity and morphology. Discs: Multilevel disc desiccation is present with disc space loss. C2-C3: No significant disc pathology. The spinal canal is patent. Bilateral facet and uncovertebral joint arthropathy are present with mild bilateral neural foraminal stenosis. C3-C4: A disc osteophyte complex is present which minimally narrows the ventral subarachnoid space. Bilateral facet and uncovertebral joint arthropathy are present with moderate left and mild right ne ural foraminal stenosis. C4-C5: A disc osteophyte complex is present with mild spinal canal stenosis. Bilateral facet and unc overtebral joint arthropathy are present with mild bilateral neural foraminal stenosis. C5-C6: Eccentric left central disc bulge/protrusion with facet joint arthropathy result in moderate s dominga canal stenosis. Bilateral facet and uncovertebral joint arthropathy are present with moderate to severe bilateral neural foraminal stenosis. C6-C7: A disc osteophyte complex is present with severe spinal canal stenosis. Bilateral facet and u ncovertebral joint arthropathy are present with moderate to severe left and moderate right neural for aminal stenosis. C7-T1: No significant disc pathology. The spinal canal is patent. No neural foraminal stenosis. T1-T2: High T2/low T1 signal left synovial cysts within the foramen and extraforaminal zone. This is partially visualized on sagittal T2 and coronal T1 imaging only. IMPRESSION: 1. C6-C7 severe spinal canal stenosis secondary to disc osteophyte complex. 2. C5-C6 moderate spinal canal stenosis secondary to disc osteophyte complex and facet joint arthropa thy. 3. Multilevel facet joint and up to joint arthropathy resulting in moderate left C5-C4, moderate to s evere bilateral C5-C6, and moderate to severe left C6-C7 neural foraminal stenosis. 4. Synovial cyst at the left T1/T2 foramen/extraforaminal location is partially visualized.
== END | disposition home or self-care (01) ==
LOC: RADMRIMAIN 09:00
PROVIDERS: ATTEND Orthopaedic Surgery
DX: M25.511 Pain in right shoulder (principal); M54.12 Radiculopathy, cervical region; M50.30 Other cervical disc degeneration, unspecified cervical region; M75.21 Bicipital tendinitis, right shoulder; M48.02 Spinal stenosis, cervical region; S46.001D Unspecified injury of muscle(s) and tendon(s) of the rotator cuff of right shoulder, subsequent encounter; M75.41 Impingement syndrome of right shoulder; M19.011 Primary osteoarthritis, right shoulder; Z47.89 Encounter for other orthopedic aftercare; X58.XXXD Exposure to other specified factors, subsequent encounter
CPT/HCPCS: 72141

== ENCOUNTER → 2022-02-16 | Outpatient (CLI) | payer MEDICARE ==
[2022-02-16 11:16] VITALS: BP 132/88; PULSE 80; RESP 16; TEMP 98
--- NOTE | 2022-02-16 13:40 | P.PAINPG ---
Objective - Vital Signs Vital signs: Intake & Output 02/15/22 02/16/22 02/16/22 18:59 06:59 18:59 Weight 58.06 kg PQRS Measure Charge Sheet Comment: HISTORY OF PRESENT ILLNESS: 66 yr old female as a referal from Dr Johnson presents today w severe and chronic neck pain secondary to DDD, spondylosis, facet arthropathy without myelopathy for an evaluation. Pt states her pain level is currently at 3/10 in intensity, localized in the mid to lower aspect of her R cervical spine, sharp in character w shooting towards the R biceps. Pain is provoked as high as 7/10 in intensity w lateral flexion and rotation. Pain is alleviated w meds (Flexeril, Zanax from Dr Haynes), topicals, Lidoderm patches, heat, PT which she is currently in, home stretching regimen, repositioning and rest. 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 FH: Fa- No Reported History All: Nitrofurantoin Meds: See list REVIEW OF ORGAN SYSTEMS: CONSTITUTIONAL: No fevers or chills. No recent weight loss . NEUROLOGICAL: + numbness and tingling along the distal extremities. No seizure disorders or headaches. MUSCULOSKELETAL: + pain PSYCHIATRIC: Denies current depression or suicidal thoughts. Physical Examinations : Constitutional : Cooperative , not in acute distress . Neurologic : Cranial nerve II to XII intact. No focal neurological deficits. Psychiatric : alert & oriented x 3. Matching mood & appropriate affect. Judgment & insight intact. Musculoskeletal : Cervical Spine Motor strength in the deltoid and biceps: Normal right side. Normal Left side Motor strength biceps and the wrist ext ensors: Normal right side . Normal left side Motor strength in the triceps muscle: Normal right side. Normal left side Deep tendon reflexes: Normal at the biceps. Normal at Brachioradialis. Normal at triceps Vertebral body tenderness to deep palpation over Cervical facet loading test: positive over R C3-C4, C4-C5 w lateral flexion/ extension Spurling test: positive bilaterally Neck distraction test: positive bilaterally Raf sign: positive bilaterally Lumbar spine Motor strength lower extremities ,thigh and legs 5/5 Right side , 5/5 Left side Deep tendon reflexes : Normal Knee Jerk. Normal Ankle Jerk Vertebral body tenderness over Lumbar facet Loading Test: positive Right / positive Left Range of motion of the lumbar spine Flexion 30 degrees, extension 10 degrees Straight Leg Raise test: Left/ Right positive at degree Mary test: positive right / positive left. Severe tenderness over the Sacroiliac joint on the Right / Left sides Gaenslen test: positive bilaterally Seated flexion test: positive bilaterally. Sacral spine : Severe tenderness over the Sacroiliac joint: right side / left side Range of motion: Flexion of the lumbar spine <60 degrees Range of motion: Extension of the lumbar spine <20 degrees Gaenslen's Test positive Roldan's Test positive Mary test: positive right side / left side Thigh Thrust Test Sacral Thrust Test Imaging: MRI without contrast of the cervical spine from 01/30/22 reviewed Assessment/ Plan : Cervical DDD, Cervical spondylosis Recommendation of R MBB C3-C4, C4-C5 #1. May need a series of injections, up until RFA, for optimal pain relief. Risks, benefits of procedure discussed and patient verbalized understanding. Admits to aspirin or anti- coagulant use or medical history of diabetes. Protocol for discontinuation/ continuation of medications yasmin procedure discussed. All questions answered. I have spent greater than 30 minutes on patient care today. Dr Wharton was available by phone for the evaluation of this patient. The time was used to review the medical records including relevant urine studies and Prescription history (MAPs), review of the available imaging, evaluation and examination of the patient, coordination of care with the medical staff and if applicable referring physicians, as well as creation of the medical record - Pain Location Right Arm Non-Pharmacological Interventions: Heat, Home Exercise, Inactivity, Physical Therapy, Position/Reposition, Stretching Pharmacological Interventions: PRN Medication, Topical Medication PQRS Narrative: Smoking Status Current every day smoker Pain Intensity [Right Arm] 4 Scale Used Numeric (1 - 10) Hx Alcohol Use (MH) Yes Home Medications: Ambulatory Orders ALPRAZolam [Xanax] 0.5 mg PO TID 06/22/17 Cholecalciferol [Vitamin D3 (25 Mcg = 1000 Iu)] 1,000 unit PO DAILY 06/22/17 Cyclobenzaprine [Flexeril] 5 mg PO HS 06/22/17 Atorvastatin [Lipitor] 20 mg PO Q48H 02/15/22 Escitalopram [Lexapro] 10 mg PO DAILY 02/15/22 Controlled Substance Measures - Controlled Substance Measures Is patient prescribed a controlled substance at discharge?: No
== END ==
LOC: PNWHC3 10:57
PROVIDERS: ATTEND Specialist
DX: M47.812 Spondylosis without myelopathy or radiculopathy, cervical region (principal); M47.892 Other spondylosis, cervical region; F17.200 Nicotine dependence, unspecified, uncomplicated; E11.9 Type 2 diabetes mellitus without complications; Z79.82 Long term (current) use of aspirin; Z88.1 Allergy status to other antibiotic agents
CPT/HCPCS: 99211

== ENCOUNTER 2022-03-21 08:36 | Day surgery (SDC) | payer MEDICARE ==
[2022-03-21] MEDS ORDERED: LACTATED RINGERS 1,000 ML IV ONE (08:59)
[2022-03-21] MEDS ORDERED: LIDOCAINE 1% (10MG/ML) FOR IV START INTRADERMA PRN (09:00)
[2022-03-21] MEDS ORDERED: LACTATED RINGERS 1,000 ML IV SCH (09:00)
[2022-03-21 09:05] VITALS: TEMP 98
[2022-03-21] MEDS ORDERED: ROPIVACAINE 5 MG/ML 20 ML AMPULE ONE (09:23)
[2022-03-21] MEDS ORDERED: fentaNYL (PF) 50 MCG/ML 2 ML AMP ONE (09:23)
[2022-03-21] MEDS ORDERED: MIDAZOLAM 2 MG/2 ML VIAL ONE (09:23)
[2022-03-21] MEDS ORDERED: IOPAMIDOL M200 10 ML VIAL ONE (09:23)
[2022-03-21] MEDS ORDERED: methylPREDNISolone ACETATE 40 MG/ML 1 ML VIAL ONE (09:23)
--- NOTE | 2022-03-21 09:39 | P.PCN ---
Date of Procedure: 03/21/22 Procedure(s) Performed: PREOPERATIVE DIAGNOSIS: 1-Cervical Spondylosis with Facet Arthropathy.without myelopathy. 2-cervical degenerative disc disease POSTOPERATIVE DIAGNOSIS: Same as preoperative diagnosis. PROCEDURES: Diagnostic Right C3, C4 , C5 medial branch blocks, with fluoros copic guidance (fluoroscopy images available in radiology department ) ( to target the facet joint at Right C3-4 , C4- 5 ) ANESTHESIA:moderate sedation with Versed 2 mg , and fentanyl 50 micrograms Sedation started at 09:25 , sedation finished at 09:35 EBL: Minimal PROCEDURE INDICATION: The patient with neck pain secondary to cervical arthropathy unresponsive to more conservative treatments. PROCEDURE DESCRIPTION / TECHNIQUE: The patient was seen and identified in the preoperative area. Risks, benefits, complications, and alternatives were discussed with the patient, the patient agreed to proceed with the procedure and signed the consent. IV was started. Vital signs remained stable throughout the procedure. Patient was taken to the OR and time out was completed. The patient was placed in the lateral position on the procedure table( right side up ).. The cervical area was prepped and draped in the usual sterile fashion. Critical pause was taken. Vital signs were closely monitored during the procedure. Conscious sedation was used during the procedure to decrease patients anxiety. Using cross-table lateral fluoroscopy, the centroid of the trapezoid of right C3, C4 , C5 was identified, marked, and localized with 1% lidocaine 1 ml at each level for skin and Sub Q infiltrations . Subsequently, a 22 G 3 spinal needle was advanced guided by fluoroscopy to the centroid of the trapezoid of Right C3, C4 , C5, . [place] tip position was confirmed at the centroid of the trapezoids of Right C3 , C4 , C5 with anteroposterior fluoroscopy. Subsequently, 1.5 ml of preservative-free Ropivacaine 0.5% mixed with Depo- Medrol 20 mg and half ml of the mixture was injected after negative aspiration for blood and CSF. [place] was then removed intact COMPLICATIONS: No acute complications. COMMENTS: DISPOSITION / PLANS: The patient was placed in a supine position and transferred to the recovery area in a stable condition for observation and was discharged from the recovery room after meeting discharge criteria. Home discharge instructions given to the patient by the staff. The patient was reexamined prior to discharge. The patient will schedule a follow up in the clinic in 2-4 weeks.
--- NOTE | 2022-03-21 09:54 | FL ---
EXAMINATION TYPE: FL guided pain mgmt statistic DATE OF EXAM: 03/21/2022 HISTORY: Fluoroscopy time 3 seconds of fluoroscopy provided. IMPRESSION: 1. Fluoroscopy time.
[2022-03-21] MEDS ORDERED: IV FLUID CONTINUATION 1,000 ML IV ONE (10:01)
[2022-03-21 10:03] VITALS: RESP 16
[2022-03-21 10:04] VITALS: BP 151/92; PULSE 60
== END 2022-03-21 10:25 | disposition home or self-care (01) ==
LOC: ORPAIN 08:36
PROVIDERS: ATTEND Specialist
DX: M47.812 Spondylosis without myelopathy or radiculopathy, cervical region (principal); M50.321 Other cervical disc degeneration at C4-C5 level
CPT/HCPCS: 64490; 64491; J2250; J1030; J3010; Q9966; J2795; 99152

== ENCOUNTER → 2022-04-06 | Outpatient (CLI) | payer MEDICARE ==
[2022-04-06 11:55] VITALS: BP 130/87; PULSE 58; RESP 18; TEMP 97.8
--- NOTE | 2022-04-06 14:24 | P.PAINPG ---
Objective - Vital Signs Vital signs: Vital Signs Temp 97.8 F 04/06/22 11:51 Pulse 58 L 04/06/22 11:51 Resp 18 04/06/22 11:51 BP 130/87 04/06/22 11:51 Pulse Ox 98 04/06/22 11:51 FiO2 Intake & Output 04/05/22 04/06/22 04/06/22 18:59 06:59 18:59 Weight 128 kg PQRS Measure Charge Sheet Mode of Arrival: Ambulatory Comment: A 66 yr old female with a history of severe and chronic neck pain secondary to cervical DDD and spondylosis with facet arthropathy without myelopathy presents today for evaluation s/p R MBB C3-C4, C4-C5 #1. Pt states she experienced 0% pain relief s/p procedure. Pain level is currently at 8 /10 in intensity, constant, localized in the right mid to lower cervical spine, throbbing in character with shooting towards the BUEs. Pain is provoked by . Pain is alleviated with medications (Flexeril from Dr. Johnson), injections, heat, PT which ended January 2022, daily home stretching regimen, repositioning and rest. Interventional pain procedures completed include R MBB C3-4, C4-5 x1. Patient is currently on Flexeril prn Patient denies any side effects of the medication(s), denies excessive drowsiness or sleepiness, denies suicidal ideation and reports that the current pain medication is helping to control the pain and improve activities of daily living. Patient denies any motor or sensory deficits. Patient denies any fever or night sweats, denies any change in the bowel movements or urination. Physical Examination: -Constitutional: Cooperative. Not in acute distress . - Neurologic: Cranial nerve II to XII intact. No focal neurological deficits. - Psychatric: Alert & oriented x 3. Matching mood & appropriate affect. Judgment and insight intact. - Musculoskeletal: Cervical spine: Muscle bulk/ tone/ strength in the bilateral upper extremities normal Vertebral body tenderness to palpation over C6 Spurling test positive Distraction test positive Facet loading test positive Thoracic spine Muscle bulk / tone/ strength in the bilateral paraspinal muscles normal Vertebral body tender to palpation over Facet loading test positive Lumbar spine: Motor bulk/ tone/ strength lower extremities , thigh and legs : 5/5 Deep tendon reflexes : Normal Knee Jerk. Normal Ankle Jerk . Vertebral body tenderness to palpation over Lumbar Facet Loading Test positive Straight Leg Raise: positive at 30 degrees right side/ left side Gaenslen's Test positive Sacral spine : Severe tenderness over the Sacroiliac joint: right side / left side Range of motion: Flexion of the lumbar spine <60 degrees Range of motion: Extension of the lumbar spine <20 degrees Gaenslen's Test positive Mary test: positive right side / left side Thigh Thrust Test Sacral Thrust Test Assessment and plan: Chronic neck pain secondary to cervical DDD, spondylosis with facet arthropathy without myelopathy Recommendation of ALBERTO C6-C7. May need a series of injections, up to 3 within a 6 mo period, for optimal pain relief. Risks, benefits of procedure discussed and pt verbalized understanding. Denies anticoagulant use or medical history of diabetes. All patient questions answered I have spent less than 30 minutes on patient care today. Dr Wharton was available by phone for the evaluation of this patient. The time was used to review the medical records including relevant urine studies and Prescription history (MAPs), review of the available imaging, evaluation and examination of the patient, coordination of care with the medical staff and if applicable referring physicians, as well as creation of the medical record - Pain Location Neck Non-Pharmacological Interventions: Heat, Home Exercise, Physical Therapy, Position/Reposition, Stretching Pharmacological Interventions: Block, PRN Medication PQRS Narrative: Smoking Status Current every day smoker Blood Pressure 130/87 Pain Intensity [Neck] 8 Scale Used Numeric (1 - 10) Hx Alcohol Use (MH) Yes Home Medications: Ambulatory Orders ALPRAZolam [Xanax] 0.5 mg PO TID 06/22/17 Cholecalciferol [Vitamin D3 (25 Mcg = 1000 Iu)] 1,000 unit PO DAILY 06/22/17 Cyclobenzaprine [Flexeril] 5 mg PO HS 06/22/17 Atorvastatin [Lipitor] 20 mg PO Q48H 02/15/22 Escitalopram [Lexapro] 10 mg PO DAILY 02/15/22 busPIRone HCL [Buspar] 7.5 mg PO BID 03/17/22 Aspirin 81 mg PO DAILY 03/21/22 Controlled Substance Measures - Controlled Substance Measures Is patient prescribed a controlled substance at discharge?: No
== END ==
LOC: PNWHC3 11:18
PROVIDERS: ATTEND Specialist
DX: M47.812 Spondylosis without myelopathy or radiculopathy, cervical region (principal); M50.30 Other cervical disc degeneration, unspecified cervical region; G89.29 Other chronic pain; Z88.1 Allergy status to other antibiotic agents; F17.200 Nicotine dependence, unspecified, uncomplicated
CPT/HCPCS: 99211

== ENCOUNTER → 2022-05-29 | Outpatient (CLI) | payer MEDICARE ==
[2022-05-29 11:04] LABS: African American GFR (CKD) >90 (>60 ml/min/1.73 sqM); Blood Urea Nitrogen 14 mg/dL (7-17); Non-African American GFR(CKD) 79 (>60 ml/min/1.73 sqM)
--- NOTE | 2022-05-29 12:07 | CT ---
EXAMINATION TYPE: CT chest w con CT DLP: 157.80 mGycm, Automated exposure control for dose reduction was used. DATE OF EXAM: 05/29/2022 11:56 AM COMPARISON: PET/CT 12/17/2020, CT thorax 10/25/2020 CLINICAL INDICATION:Female, 66 years old with history of R91.8 ABNORMAL LUNG ANGELA, Abnormal lung fi elds. Prior hx breast ca. TECHNIQUE: Multiple axial images were obtained through the chest. Sagittal and coronal reformats were created for review.. Imaging was created on a separate workstation and reviewed. Contrast used:70 mL of Isovue 300 with IV Contrast Oral contrast used: none. FINDINGS: LUNGS/ PLEURA: Right middle lobe 9 mm pulmonary nodule. No evidence focal consolidation, pneumothorax perfusion. Mild paraseptal emphysema changes. AIRWAY: Patent and unremarkable. HEART: Size within normal limits. Coronary artery atherosclerosis. Interatrial septum occlusion devic e is present. MEDIASTINUM: No gross evidence of adenopathy. VASCULATURE: No aortic aneurysm. MUSCULOSKELETAL: No acute osseous abnormalities SOFT TISSUES/LYMPH NODES: Left breast intracapsular rupture. The right breast implant appears intact. LOWER NECK: No significant findings. UPPER ABDOMEN: Partially visualized lesion next expected location of the kidney. Represent an atrophi c kidney IMPRESSION: 1. Stable right middle lobe 9 mm pulmonary nodule dating back to at least 10/25/2020. No new nodules i dentified. 2. Left breast implant intracapsular rupture. Right breast implant intact.
== END | disposition home or self-care (01) ==
LOC: RADCTMAIN 09:36
PROVIDERS: ATTEND Internal Medicine
DX: R91.8 Other nonspecific abnormal finding of lung field (principal); Z98.82 Breast implant status
CPT/HCPCS: 82565; 84520; 71260; 36415; Q9967

== ENCOUNTER 2022-08-01 08:06 | Day surgery (SDC) | payer MEDICARE, OTHER ==
[2022-07-26 12:56] VITALS: BMI 21.1
[~2022-08-01 08:06] MED LIST: LACTATED RINGERS 1,000 ML IV SCH; LIDOCAINE 1% (10MG/ML) FOR IV START INTRADERMA PRN
[2022-08-01 08:24] VITALS: RESP 16; TEMP 98.1
[2022-08-01] MEDS ORDERED: DEXAMETHASONE SOD PHOSPHATE 10 MG/ML 1 ML VIAL ONE (09:10)
[2022-08-01] MEDS ORDERED: MIDAZOLAM 2 MG/2 ML VIAL ONE (09:10)
[2022-08-01] MEDS ORDERED: IOPAMIDOL M200 10 ML VIAL ONE (09:10)
--- NOTE | 2022-08-01 09:20 | P.PCN ---
Date of Procedure: 08/01/22 Procedure(s) Performed: . PROCEDURE 1. Cervical epidural steroid injection under fluoroscopic guidance, C6-7 (fluoroscopy images available in the radiology department ) 2. Cervical epidurogram. PREOPERATIVE DIAGNOSIS: 1- Cervical Degenerative Disc Diseases 2-cervical spondylosis with cervical Facet arthropathy without myelopathy. POSTOPERATIVE DIAGNOSIS: : 1- Cervical Degenerative Disc Diseases , 2-,cervical spondylosis with cervical Facet arthropathy without myelopathy. ANESTHESIA: moderate sedation, with Versed 2 mg. Sedation start time :910 Sedation end time :917 EBL 0 PROCEDURE INDICATION: The patient with neck pain and radiculitis unresponsive to conservative treatment consents for procedure. PROCEDURE DESCRIPTION / TECHNIQUE: The patient was seen and identified in the preoperative area. Risks, benefits, complications, including but not limited to infections ,bleeding , allergic reactions to the medications ,and not complete pain releife, and alternatives were discussed with the patient, the patient agreed to proceed with the procedure and signed the consent. Patient was taken to the OR and time out was completed. The patient was placed in the prone position on the procedure table. A pillow was placed under the patients chest to increase the cervical interlaminar space. The cervical area was prepped and draped in the usual sterile fashion. Vital signs were closely monitored during the procedure. Conscious sedation was used during the procedure to decrease patients anxiety. Using anterior-posterior fluoroscopy, the C6-7 interlaminar space was identified and the skin over this site was marked and then infiltrated with 1% lidocaine subcutaneously. Subsequently, a 20-gauge 3-1/2-inch Tuohy epidural needle was inserted and advanced toward the epidural space by means of the ``hanging-drop technique and guided by AP and lateral fluoroscopy. The correct needle position in the epidural space was verified with the injection of 2 mL of the water soluble contrast dye Isovue-200 and observing an excellent epidurogram with the epidural spread of the dye, after negative aspiration for blood and CSF and in the absence of paresthesias. then, mixture containing 20 mg Dexamethasone and 2 ml of preservative-free normal saline injected and a washout of epidurogram was seen. Needle was withdrawn intact, skin was cleansed, and bandages were applied. Complications= none. Disposition= patient was placed in supine position and transferred to the recovery room area in stable condition and there was no evidence of upper or lower extremity motor or sensory deficit after the procedure patient was dischar ged from recovery room after discharge criteria met and home discharge instructions was given by the staff and patient will follow with the pain clinic in 2-4 weeks
[2022-08-01] MEDS ORDERED: IV FLUID CONTINUATION 1,000 ML IV ONE (09:22)
--- NOTE | 2022-08-01 09:32 | FL ---
Intraoperative/procedural fluoroscopic services were provided for cervical epidural steroid injection . Total fluoroscopy time is 6 seconds with a total of 1 submitted image to PACS. Total DAP [id number]. P yoel see the operative note for further details.
[2022-08-01 09:42] VITALS: BP 122/76; PULSE 58
== END 2022-08-01 09:55 | disposition home or self-care (01) ==
LOC: ORPAIN 08:06
PROVIDERS: ATTEND Specialist
DX: M50.123 Cervical disc disorder at C6-C7 level with radiculopathy (principal); M47.22 Other spondylosis with radiculopathy, cervical region; Z88.8 Allergy status to other drugs, medicaments and biological substances
CPT/HCPCS: 62321; J2250; J1100; Q9966

== ENCOUNTER → 2022-08-21 | Outpatient (CLI) | payer OTHER ==
--- NOTE | 2022-08-21 12:14 | P.PN ---
Subjective Progress Note Date: 08/21/22 This is 66 yr old female with a history of severe and chronic neck pain secondary to cervical DDD and spondylosis with facet arthropathy without myelopathy presents . Pain level is currently at 8 /10 in intensity, constant, localized in the right mid to lower cervical spine, throbbing in character with shooting towards the BUEs. Pain is provoked by . Pain is alleviated with medications (Flexeril from Dr. Johnson), injections, heat, PT which ended January 2022, daily home stretching regimen, repositioning and rest. Interventional pain procedures completed include R MBB C3-4, C4-5 x1. Cervical epidural steroid injections 1 Patient is currently on Flexeril prn Patient denies any side effects of the medication(s), denies excessive drowsiness or sleepiness, denies suicidal ideation and reports that the current pain medication is helping to control the pain and improve activities of daily living. Patient denies any motor or sensory deficits. Patient denies any fever or night sweats, denies any change in the bowel movements or urination. Physical Examination: -Constitutional: Cooperative. Not in acute distress . - Neurologic: Cranial nerve II to XII intact. No focal neurological deficits. - Psychatric: Alert & oriented x 3. Matching mood & appropriate affect. Judgment and insight intact. - Musculoskeletal: Cervical spine: Muscle bulk/ tone/ strength in the bilateral upper extremities normal Vertebral body tenderness to palpation over C6 Spurling test positive Distraction test positive Facet loading test positive Thoracic spine Muscle bulk / tone/ strength in the bilateral paraspinal muscles normal Vertebral body tender to palpation over Facet loading test positive Lumbar spine: Motor bulk/ tone/ strength lower extremities , thigh and legs : 5/5 MRI of the cervical spine C5-C6 C6 7 severe spinal stenosis and multilevel cervical facet arthropathy multilevel cervical degenerative disc disease Assessment and plan: Chronic neck pain secondary to=1- cervical DDD,2- spondylosis with facet arthropathy without myelopathy,3- cervical spinal stenosis Recommendation of ALBERTO C7-T1 . And could benefit from Mobic 7.5 mg tab when necessary All patient questions answered - Pain Location Neck Non-Pharmacological Interventions: Heat, Home Exercise, Physical Therapy, Position/Reposition, Stretching Pharmacological Interventions: Block, PRN Medication PQRS Narrative: Smoking Status Current every day smoker Blood Pressure 130/87 Pain Intensity [Neck] 8 Scale Used Numeric (1 - 10) Hx Alcohol Use (MH) Yes Home Medications: Ambulatory Orders ALPRAZolam [Xanax] 0.5 mg PO TID 06/22/17 Cholecalciferol [Vitamin D3 (25 Mcg = 1000 Iu)] 1,000 unit PO DAILY 06/22/17 Cyclobenzaprine [Flexeril] 5 mg PO HS 06/22/17 Atorvastatin [Lipitor] 20 mg PO Q48H 02/15/22 Escitalopram [Lexapro] 10 mg PO DAILY 02/15/22 busPIRone HCL [Buspar] 7.5 mg PO BID 03/17/22 Aspirin 81 mg PO DAILY 03/21/22 Controlled Substance Measures - Controlled Substance Measures Is patient prescribed a controlled substance at discharge?: No Objective - Vital Signs Vital signs: Intake & Output 08/20/22 08/21/22 08/21/22 18:59 06:59 18:59 Weight 62.142 kg
[2022-08-21 12:26] VITALS: BP 142/93; PULSE 81; RESP 18; TEMP 98
== END ==
LOC: PNWHC3 11:40
PROVIDERS: ATTEND Specialist
DX: M50.323 Other cervical disc degeneration at C6-C7 level (principal); M47.812 Spondylosis without myelopathy or radiculopathy, cervical region; M48.02 Spinal stenosis, cervical region; G89.29 Other chronic pain; F17.200 Nicotine dependence, unspecified, uncomplicated; Z79.82 Long term (current) use of aspirin; Z88.1 Allergy status to other antibiotic agents; M50.322 Other cervical disc degeneration at C5-C6 level
CPT/HCPCS: 99211

== ENCOUNTER 2022-10-04 12:02 | Day surgery (SDC) | payer OTHER ==
[~2022-10-04 12:02] MED LIST changes: +HYDROmorphone 0.5 MG/0.5 ML SYRINGE IVP PRN; -LACTATED RINGERS 1,000 ML IV SCH; +ONDANSETRON 4 MG/2 ML VIAL IVP ONE; +ceFAZolin 1,000 MG in SODIUM CHLORIDE 0.9% IRRIGATIO 1,000 ML IRRIGATION PRN; +droPERidol 5 MG/2 ML VIAL IVP ONE
[2022-10-04] MEDS ORDERED: LACTATED RINGERS 1,000 ML IV ONE ×3 (12:25→15:18)
[2022-10-04] MEDS ORDERED: ONDANSETRON 4 MG/2 ML VIAL IVP ONE (12:45)
[2022-10-04] MEDS ORDERED: PROPOFOL 10 MG/ML 20 ML VIAL IV ONE (13:32)
[2022-10-04] MEDS ORDERED: NEOSTIGMINE 1 MG/ML 10 ML VIAL ONE (13:32)
[2022-10-04] MEDS ORDERED: SUCCINYLCHOLINE CHLORIDE 200 MG/10 ML VIAL IV ONE (13:32)
[2022-10-04] MEDS ORDERED: MIDAZOLAM 2 MG/2 ML VIAL ONE (13:32)
[2022-10-04] MEDS ORDERED: fentaNYL (PF) 50 MCG/ML 2 ML AMP ONE (13:32)
[2022-10-04] MEDS ORDERED: ROCURONIUM 10 MG/ML (5 ML VIAL) IV ONE (13:32)
[2022-10-04] MEDS ORDERED: ePHEDrine 50 MG/ML 1 ML VIAL ONE (13:32)
[2022-10-04] MEDS ORDERED: LIDOCAINE 2% INJ 20 MG/ML (2 ML VIAL) ONE (13:32)
[2022-10-04] MEDS ORDERED: DEXAMETHASONE SOD PHOSPHATE 4 MG/ML 1 ML VIAL ONE (13:32)
[2022-10-04] MEDS ORDERED: GLYCOPYRROLATE 0.2 MG/ML 2 ML VIAL ONE (13:32)
[2022-10-04] MEDS ORDERED: LIDOCAINE 0.5%-EPI 1:200,000 50 ML VIAL SQ ONE (13:37)
[2022-10-04] MEDS ORDERED: GELATIN SPONGE,ABSORB (LARGE) 1 EACH SPONGE TOPICAL ONE (13:37)
[2022-10-04] MEDS ORDERED: THROMBIN (BOVINE) 5,000 UNIT VIAL TOPICAL ONE (13:37)
--- NOTE | 2022-10-04 15:05 | XR ---
EXAMINATION TYPE: XR cervical spine limited DATE OF EXAM: 10/04/2022 2:44 PM INDICATION: Patient age:Female; 66 years old; Reason for study: CERVICAL STENOSIS; COMPARISON: 01/30/2022 TECHNIQUE: The cervical spine was imaged in frontal, lateral, and odontoid. FINDINGS: Intraoperative radiograph with metallic pointer on the C6 vertebrae. Endotracheal tube in place. No e vidence of fracture. Mild degeneration changes throughout the spine. Findings worse at C5-C6 and C6-C 7. IMPRESSION: 1. Intraoperative radiograph with metallic pointer on the C6 vertebrae. 2. No fracture or dislocation. 3. Mild degenerative disc disease changes of the cervical spine worse at C5-6 and C6-C7
--- NOTE | 2022-10-04 15:32 | XR ---
EXAMINATION TYPE: XR cervical spine 1V DATE OF EXAM: 10/04/2022 COMPARISON: NONE HISTORY: Hardware placement TECHNIQUE: One view is submitted. FINDINGS: Postsurgical changes of C5-C7. There is facet arthropathy. Endotracheal tube noted. IMPRESSION: 1. Postoperative change appears in near-anatomic alignment
[2022-10-04] MEDS ORDERED: CYCLOBENZAPRINE 10 MG TAB PO PRN (15:35)
[2022-10-04] MEDS ORDERED: HYDROmorphone 0.5 MG/0.5 ML SYRINGE IVP PRN (15:35)
[2022-10-04] MEDS ORDERED: ALPRAZolam 0.5 MG TAB PO PRN (15:36)
--- NOTE | 2022-10-04 15:41 | P.OP ---
Date of Procedure: 10/04/22 Preoperative Diagnosis: Cervical stenosis C5 6 C6 7, herniated nucleus pulposis C5 6 C6 7, degenerative disc disease, neck pain, facet arthrosis, upper extremity radiculopathy, upper extremity weakness Postoperative Diagnosis: Same Anesthesia: GETA Pathology: none sent Condition: stable Description of Procedure: BRIEF OPERATIVE NOTE Preoperative Diagnosis:Cervical stenosis C5 6 C6 7, herniated nucleus pulposis C5 6 C6 7, degenerative disc disease, neck pain, facet arthrosis, upper extremity radiculopathy, upper extremity weakness Postoperative Diagnosis:Cervical stenosis C5 6 C6 7, herniated nucleus pulposis C5 6 C6 7, degenerative disc disease, neck pain, facet arthrosis, upper extremity radiculopathy, upper extremity weakness Procedure: Anterior cervical decompression with discectomy and fusion C5 6 C6 7 Placement of interbody graft C5 6 C6 7 Application of anterior cervical plate C5 6 and 7 Surgeon: Dr. Rodas Separations Scientist: Cameron Sanches is present throughout the entire the case persistence during positioning, dissection, exposure, visualization, and all crucial elements of the case as well as closure. Anesthesia: General anesthesia Estimated blood loss: Approximately 150 mL Complications: None apparent Components implanted: K2M Stevens anterior cervical plate system and Vikos interbody allograft bone graft and 1 mL of DBX bone putty Disposition: To recovery room in good stable condition. OPERATIVE INDICATIONS The patient has had long-standing issues in their neck and upper extremities. She has been having significant worsening of her neck and particularly at her right upper extremity over the past several months. She was found have evidence of severe changes at her cervical spine at C5 6 C6 7 with disc herniation cervical stenosis and degenerative disc disease with herniation which correlated well with her neck and upper extremity symptoms. The patient has been through conservative treatment. We discussed various treatment options including surgery, and the patient wishes to proceed with surgery We discussed the risk, patient's alternatives and benefits of surgery including but not limited to, risk of bleeding risk of infection, risk of need for further surgery, risk of decreased, loss of motion, muscle function, malunion nonunion, hardware failure, nerve damage, paralysis, heart attack, and . OPERATIVE SUMMARY After discussing all the risks, patient alternatives and benefits at length, the patient elected to proceed with surgical intervention, signed informed consent, and presented for their procedure. The patient was seen and examined in the preoperative holding area and the surgical site was marked. The patient was given antibiotics and brought to the operating room. The patient was positioned on the operating room table in a supine position being careful to pad any bony prominences and pressure points. The patient was sedated and intubated by anesthesia in standard fashion. Once the airway and C- spine were stabilized the patient's arms were padded and tucked at her side, with her shoulders gently taped. The head was placed in a donut pad with the neck in good neutral alignment and position. We were careful to maintain the patient's cervical spine and good neutral alignment and position throughout. The patient was prepped and draped in a normal standard fashion. An appropriate timeout and keystone protocol performed. We were able to proceed with the surgery. The local wound area was infiltrated with local anesthetic. An incision was made transversely approximately 2-1/2 cm over the appropriate levels at C6 on the right. Dissection was taken down subcutaneously to the level of the platysma which was split in line with its fibers. Dissection was taken with a carotid approach, with the trachea and esophagus medial and the carotid sheath laterally. We dissected down to the anterior surface of the vertebral bodies. Intraoperative x-ray was taken which showed a marker at the appropriate level at C6 vertebral body near the C5 6 disc space. With the appropriate level positively confirmed, we were able to proceed with discectomy at the appropriate levels first at C5 6 and then at C6 7. All of the operative levels were exposed appropriately. There is near complete disc height loss at each level and large osteophytes. The patient had all their twitches back, and there was no evidence of recurrent laryngeal issue. The wound was copiously irrigated and suctioned dry as had been done periodically throughout the case. At the appropriate level/levels, I established an annulotomy with an 11 blade scalpel. A discectomy was performed with a combination of pituitary rongeurs, curettes, a high-speed bur, and Kerrison rongeurs. The posterior longitudinal ligament was taken down as were any posterior osteophytes. This gave good central and bilateral foraminal decompression. There is no evidence of any dural tear or leak. The endplates were prepared with a high-speed bur. With the endplates in good parallel position, I was able to size for the appropriate size interbody graft. The wound was irrigated and suctioned dry the graft was prepared and malleted into position. It had good alignment and position with the anterior surface flush with the anterior surface of the vertebral bodies. This was done similarly the appropriate levels first at C5 6 and at C6 7. With the grafts intact, I was able to measure and contour and appropriate sized plate. The plate was positioned at the midline over the appropriate levels at C 5 6 and 7. Screw holes were established with a hand drill and drill guide. Screws were placed in good alignment and position with excellent bony purchase. They were seated under the locking device. The construct was checked and found to be stable. Intraoperative x-ray was taken which showed good alignment and position of the implants at the appropriate levels. There was no evidence of any dural tear or leak. Good hemostasis was maintained. The wound was copiously irrigated and suctioned dry as had been done periodically throughout the case. The platysma was closed with absorbable suture. The subcutaneous tissue was closed. The subcuticular tissue was closed with absorbable suture. The wound was cleaned and dried and dressed appropriately. A soft cervical collar was placed appropriately. The patient was woken up by anesthesia, extubated, transferred back gently to their hospital bed and brought to the recovery room in good stable condition. The patient will be admitted to the hospital for appropriate postoperative care, medical management and monitoring. We will continue to follow them closely about the postoperative course.
[2022-10-04] MEDS: LACTATED RINGERS 1,000 ML IV SCH (16:51)
[2022-10-04] MEDS: ONDANSETRON 4 MG/2 ML VIAL IVP PRN (18:28)
[2022-10-04] MEDS: BENZOCAINE/MENTHOL LOZENG 1 EACH LOZENGE MUCOUS MEM PRN (18:50)
[2022-10-04] MEDS: SODIUM CHLORIDE 0.9% 1,000 ML IV SCH (18:51)
[2022-10-04] MEDS: HYDROcodone/APAP 5-325MG 1 EACH TAB PO PRN (20:00)
[2022-10-04] MEDS: CYCLOBENZAPRINE 10 MG TAB PO SCH (20:00)
[2022-10-04 20:16] VITALS: RESP 18
[2022-10-04] MEDS ORDERED: ATORVASTATIN 10 MG TAB PO SCH (21:00)
[2022-10-05] MEDS: HYDROcodone/APAP 5-325MG 1 EACH TAB PO PRN ×2 (00:37→07:07)
[2022-10-05] MEDS: BENZOCAINE/MENTHOL LOZENG 1 EACH LOZENGE MUCOUS MEM PRN (00:37)
[2022-10-05] MEDS: SODIUM CHLORIDE 0.9% 1,000 ML IV SCH ×2 (04:51→08:41)
[2022-10-05] MEDS: LACTATED RINGERS 1,000 ML IV SCH (04:52)
[2022-10-05 08:19] VITALS: BP 153/84; PULSE 93; TEMP 98.3
[2022-10-05] MEDS: CYCLOBENZAPRINE 10 MG TAB PO SCH (08:22)
[2022-10-05] MEDS: ONDANSETRON 4 MG/2 ML VIAL IVP PRN (08:52)
[2022-10-05] MEDS ORDERED: ESCITALOPRAM 10 MG TAB PO SCH (09:00)
[2022-10-05] MEDS ORDERED: CHOLECALCIFEROL 25 MCG (1000 IU) TABLET PO SCH (09:00)
[2022-10-05] MEDS ORDERED: ASPIRIN 81 MG PO SCH (09:00)
--- NOTE | 2022-10-05 10:01 | P.DS ---
Providers Date of admission: 10/04/22 Attending physician: Yany Rodas Primary care physician: Jayme Mejia Hospital Course: The patient presented on the day of admission as per their operative note. She is postoperative day #1 status post anterior cervical decompression with discectomy and fusion C5 6 C6 7 for her cervical stenosis with degenerative disc disease herniated nucleus pulposis and upper extremity radiculopathy. She feels her arms are still sore but may be slightly better. She has been able to tolerate soft diet. Her neck is sore. She is voiding freely. She has been ambulatory in her room. Physical Exam The incision site is clean dry and intact. There is no erythema no drainage. There is no purulence no evidence of infection. Her neck is soft and supple. She is wearing her soft collar. Abdomen soft and nontender. Chest has good excursion with deep inspiration and expiration. The patient has active and passive range of motion intact at the upper and lower extremities. There is no acute change in neurologic status. She has good motion at her upper extremities throughout. Hospital Course Postoperative day #1 status post anterior cervical decompression with discectomy fusion C5 6 C6 7 for her cervical stenosis with disc herniation upper extremity radiculopathy. Patient is making slow progress but I think that she is moving forward appropriately. They have completed the prophylactic antibiotics without any signs or symptoms of infection. The patient has been able to advance their diet, and is tolerating diet adequately. The pain was initially controlled with IV medications and is now controlled appropriately with oral medications. The patient has been able to increase their mobilization. The patient has progressed appropriately. I think they are in good stable condition for discharge today. They will be sent home with appropriate prescriptions. I answered their questions to the best of my ability in a language that they can understand and they are agreeable with the plan. They will follow up as directed in approximately 2 weeks or should she have any problems. Patient Condition at Discharge: Fair Plan - Discharge Summary Discharge Rx Participant: No New Discharge Prescriptions: New Baclofen 10 mg PO TID PRN #60 tab PRN Reason: Spasms HYDROcodone/APAP 5-325MG [Tsaile 5] 1 each PO Q4HR PRN #42 tab PRN Reason: Pain No Action ALPRAZolam [Xanax] 0.5 mg PO TID Cholecalciferol [Vitamin D3 (25 Mcg = 1000 Iu)] 1,000 unit PO DAILY Cyclobenzaprine [Flexeril] 10 mg PO BID Aspirin 81 mg PO DAILY Meloxicam [Mobic] 7.5 mg PO DAILY PRN 30 Days #30 tab PRN Reason: Pain Escitalopram [Lexapro] 10 mg PO DAILY Atorvastatin [Lipitor] 10 mg PO Q48H Discharge Medication List ALPRAZolam [Xanax] 0.5 mg PO TID 06/22/17 [History] Cholecalciferol [Vitamin D3 (25 Mcg = 1000 Iu)] 1,000 unit PO DAILY 06/22/17 [History] Cyclobenzaprine [Flexeril] 10 mg PO BID 06/22/17 [History] Atorvastatin [Lipitor] 10 mg PO Q48H 02/15/22 [History] Escitalopram [Lexapro] 10 mg PO DAILY 02/15/22 [History] Aspirin 81 mg PO DAILY 03/21/22 [History] Meloxicam [Mobic] 7.5 mg PO DAILY PRN 30 Days #30 tab 08/21/22 [Rx] Baclofen 10 mg PO TID PRN #60 tab 10/04/22 [Rx] HYDROcodone/APAP 5-325MG [Tsaile 5] 1 each PO Q4HR PRN #42 tab 10/04/22 [Rx] Follow up Appointment(s)/Referral(s): Jayme Mejia DO [Primary Care Provider] - 1 Week Cameron Mitchell PAC [PHYSICIAN GEOGRAPHIC ANALYST] - 10/17/22 1:15 pm (Patient may follow-up with Cameron Mitchell PA-C or Dr. Aleksandar Rodas at [facility] in 2-3 weeks following discharge. ) Activity/Diet/Wound Care/Special Instructions: 1. Patient may shower with Optifoam dressing intact. 2. Patient may remove Optifoam dressing in 3 days and shower without a dressing at that time. 3. Patient may wear soft cervical collar for comfort support as needed. 4. Patient should refrain from driving until at least after their first follow- up appointment in the office. 5. Patient should avoid excessive cervical flexion, extension, and side bending; avoid overhead lifting; no lifting greater than 10 pounds 6. Take medications as prescribed 7. Patient should avoid anti-inflammatory medications over the next 6 weeks postoperatively 8. Do not soak in tub Discharge Disposition: HOME SELF-CARE
== END 2022-10-05 13:24 | disposition home or self-care (01) ==
LOC: OR 12:02 → 4SSUR 15:48 → OR 10-05 13:24
PROVIDERS: ATTEND Orthopaedic Surgery Orthopaedic Surgery of the Spine
DX: M50.123 Cervical disc disorder at C6-C7 level with radiculopathy (principal); M47.26 Other spondylosis with radiculopathy, lumbar region; Z79.82 Long term (current) use of aspirin; Z79.899 Other long term (current) drug therapy; E78.5 Hyperlipidemia, unspecified; Z98.890 Other specified postprocedural states; Z82.49 Family history of ischemic heart disease and other diseases of the circulatory system
CPT/HCPCS: 86900; 86901; 86850; 72020; 72040; 22551; 22552; 22845; 20930; C1713 ×2; C1762 ×2; J0690 ×3; J2405 ×2

== ENCOUNTER → 2023-07-30 | Outpatient (CLI) | payer OTHER, MEDICARE ==
--- NOTE | 2023-07-31 22:59 | MR ---
EXAMINATION TYPE: MR shoulder LT wo con DATE OF EXAM: 07/30/2023 COMPARISON: None. HISTORY: Left shoulder pain, decreased ROM x 1 year. TECHNIQUE: Multiplanar, multisequence imaging of the left shoulder is performed without contrast. FINDINGS: Rotator Cuff: Increased signal in the supraspinatus tendon with more prominent increased signal in th e infraspinatus tendon having some adjacent fluid. Subscapularis tendon intact. Rotator cuff muscle b ulk preserved. Acromioclavicular Joint: Mild to moderate narrowing and capsular hypertrophy. Mild spurring. Underlyi ng fat plane maintained. Glenohumeral Joint: Small sized joint effusion. No significant spurring. Narrowing is seen. Labrum: Increased signal superior labrum favoring degenerative tearing coronal image 18. Biceps Tendon: The long head of biceps is in normal location within bicipital groove. Bone marrow signal: Some heterogeneity. No significant focal edema. Other: No additional significant abnormality is appreciated. IMPRESSION: 1. Tendinosis of the supraspinatus and to a greater degree infraspinatus tendons. 2. Degenerative superior labral tear. 3. Fairly moderate degenerative changes are present as detailed above.
== END | disposition home or self-care (01) ==
LOC: RADMRIMAIN 10:22
PROVIDERS: ATTEND Orthopaedic Surgery Orthopaedic Surgery of the Spine
DX: M67.814 Other specified disorders of tendon, left shoulder (principal); M43.12 Spondylolisthesis, cervical region; S43.432A Superior glenoid labrum lesion of left shoulder, initial encounter; M19.012 Primary osteoarthritis, left shoulder; M47.812 Spondylosis without myelopathy or radiculopathy, cervical region; M50.122 Cervical disc disorder at C5-C6 level with radiculopathy; M50.322 Other cervical disc degeneration at C5-C6 level; M50.323 Other cervical disc degeneration at C6-C7 level; Z98.1 Arthrodesis status

== ENCOUNTER → 2023-08-15 | Outpatient (CLI) | payer OTHER, MEDICARE ==
[2023-08-15 12:43] LABS: African American GFR (CKD) >90 (>60 ml/min/1.73 sqM); Blood Urea Nitrogen 8 mg/dL (7-17); Non-African American GFR(CKD) 88 (>60 ml/min/1.73 sqM)
--- NOTE | 2023-08-20 12:48 | CT ---
EXAMINATION TYPE: CT chest w con CT DLP: 123.2 mGycm, Automated exposure control for dose reduction was used. DATE OF EXAM: 08/15/2023 1:09 PM COMPARISON: Chest radiograph from same day. CT October 25, 2020. CLINICAL INDICATION:Female, 67 years old with history of R91.1 LUNG NODULE; PHH, LUNG NODULE TECHNIQUE: Multiple axial images were obtained through the chest. Sagittal and coronal reformats were created for review. Contrast used:100 ml mL of Isovue 300 with IV Contrast (None if empty) Oral contrast used: (None if empty) FINDINGS: LUNGS/ PLEURA: The lung parenchyma appears unremarkable. AIRWAY: Patent and unremarkable. HEART: Size within normal limits. Mild calcific coronary artery disease. MEDIASTINUM: No gross evidence of adenopathy. VASCULATURE: No aortic aneurysm. MUSCULOSKELETAL: No acute osseous abnormalities SOFT TISSUES/LYMPH NODES: Unremarkable. LOWER NECK: No significant findings. UPPER ABDOMEN: Atrophic right kidney is reidentified. Otherwise unremarkable. Simple 2.5 cm left k idney cyst requires no follow-up. IMPRESSION: Right middle lobe 7.5 mm pulmonary nodule is stable since prior study of October 25, 2020. Fleischner S ociety guidelines indicate that nodules of this size that have not changed for. 24 months. Require no further follow-up A follow-up. Mild paraseptal emphysema changes. Intracapsular rupture of left breast implant with linguini sign. Simple 2.5 cm left kidney cyst requires no follow-up. Follow up recommendations for incidental pulmonary nodules, if there are any, are per Fleischner?s [place] [employer] [employer] or [employer] [employer]. [email or web address].org/articles/jodkzhuqos-[email or web address]?[email or web address]
== END | disposition home or self-care (01) ==
LOC: RADCTMAIN 11:42
PROVIDERS: ATTEND Internal Medicine
DX: R91.1 Solitary pulmonary nodule (principal); J43.9 Emphysema, unspecified; T85.49XA Other mechanical complication of breast prosthesis and implant, initial encounter; N28.1 Cyst of kidney, acquired
CPT/HCPCS: 82565; 84520; 71260; 36415; Q9967

== ENCOUNTER 2023-11-19 18:49 | Emergency (ER) | payer MEDICARE ==
--- NOTE | 2023-11-19 19:35 | ED ---
Abdominal Pain HPI - General Chief Complaint: Abdominal Pain Stated Complaint: Abd pain,vomiting Time Seen by Provider: 11/19/23 19:13 Source: patient, RN notes reviewed Mode of arrival: ambulatory Limitations: no limitations - History of Present Illness Initial Comments: 68-year-old female presenting to the ED with a chief complaint of abdominal pain. Patient states for the past 10 days has had abdominal pain. Reports that this just above her bellybutton. States initial onset had some associated nausea, vomiting, diarrhea however after the first day the symptoms have resolved and just notes ongoing abdominal pain. Reports that she saw her PCP for this last Sunday who advised her symptoms are likely secondary to GERD and provided prescriptions for omeprazole and dicyclomine without significant relief. Also advised her to follow-up with Dr. Toribio of GI. Reports she is unable to follow-up with Dr. Toribio in the next few weeks and would like to make sure nothing serious is going on. Denies chest pain or shortness of breath. Does note urinary frequency however denies any other urinary symptoms. No changes in bowel habits. No chest pain or shortness of breath. No other complaints at this time. - Related Data Home Medications Medication Instructions Recorded Confirmed ALPRAZolam [Xanax] 0.5 mg PO TID 06/22/17 10/04/22 Cholecalciferol [Vitamin D3 (25 1,000 unit PO DAILY 06/22/17 10/04/22 Mcg = 1000 Iu)] Cyclobenzaprine [Flexeril] 10 mg PO BID 06/22/17 10/04/22 Atorvastatin [Lipitor] 10 mg PO Q48H 02/15/22 10/04/22 Escitalopram [Lexapro] 10 mg PO DAILY 02/15/22 10/04/22 Aspirin 81 mg PO DAILY 03/21/22 10/04/22 Previous Rx's Medication Instructions Recorded Meloxicam [Mobic] 7.5 mg PO DAILY PRN 30 Days #30 tab 08/21/22 Baclofen 10 mg PO TID PRN #60 tab 10/04/22 HYDROcodone/APAP 5-325MG [Agenda 5] 1 each PO Q4HR PRN #42 tab 10/04/22 Allergies Allergy/AdvReac Type Severity Reaction Status Date / Time nitrofurantoin Allergy Rash/Hives Verified 11/19/23 18:55 [From Macrobid] Review of Systems ROS Statement: Those systems with pertinent positive or pertinent negative responses have been documented in the HPI. ROS Other: All systems not noted in ROS Statement are negative. Past Medical History Past Medical History: Cancer, CVA/TIA, GERD/Reflux, Hyperlipidemia, Musculoskeletal Disorder, Osteoarthritis (OA) Additional Past Medical History / Comment(s): Hx CVA X2 in 2018, little bit of vision problems since. 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 nodule rt lung, History of Any Multi-Drug Resistant Organisms: None Reported Past Surgical History: Breast Surgery, Orthopedic Surgery, Tonsillectomy Additional Past Surgical History / Comment(s): Breast implants 3 times on left and twice on right, left sided mastectomy, colonoscopy/polyp-benign, 2008 knee arthroscopy, 2012 right knee arthroscopy/partial meniscectomy, had procedure for hole in heart, right rotator cuff surgery. PAIN LINIC PROCEDURES Past Anesthesia/Blood Transfusion Reactions: Postoperative Nausea & Vomiting (PONV) Past Psychological History: Anxiety, Depression Smoking Status: Current every day smoker Past Alcohol Use History: Occasional Past Drug Use History: None Reported - Past Family History Father Family Medical History: Myocardial Infarction (MD) Mother Family Medical History: Cancer Brother(s) Family Medical History: Cancer Sister(s) Family Medical History: Myocardial Infarction (MD) Additional Family Medical History / Comment(s): . General Exam Limitations: no limitations General appearance: alert, in no apparent distress Eye exam: Present: normal appearance Neck exam: Present: normal inspection Respiratory exam: Present: normal lung sounds bilaterally Cardiovascular Exam: Present: regular rate GI/Abdominal exam: Present: soft (Umbilical tenderness to palpation. No rebound guarding or rigidity. Bowel sounds active.) Neurological exam: Present: alert, oriented X3 Skin exam: Present: warm, dry Course Vital Signs 11/19/23 11/19/23 18:52 20:55 Temperature 98.1 F 98.6 F Pulse Rate 77 64 Respiratory 18 16 Rate Blood Pressure 143/95 144/95 O2 Sat by Pulse 98 96 Oximetry Medical Decision Making - Medical Decision Making Was pt. sent in by a medical professional or institution (, PA, DBA, urgent care, hospital, or [facility]...) When possible be specific @ -No Did you speak to anyone other than the patient for history (EMS, parent, family, police, friend...)? What history was obtained from this source @ -No Did you review nursing and triage notes (agree or disagree)? Why? @ -I reviewed and agree with nursing and triage notes Were old charts reviewed (outside hosp., previous admission, EMS record, old EKG, old radiological studies, urgent care reports/EKG's, [facility] records)? Report findings @ -No old charts were reviewed Differential Diagnosis (chest pain, altered mental status, abdominal pain women, abdominal pain men, vaginal bleeding, weakness, fever, dyspnea, syncope, headache, dizziness, GI bleed, back pain, seizure, CVA, palpatations, mental health, musculoskeletal)? @ -Differential Abdominal Pain Women: Appendicitis, Cholecystitis, diverticulosis, ischemic bowel, pancreatitis, hepatitis, UTI, gastroenteritis, AAA, incarcerated hernia, bowel obstruction, constipation, inflammatory bowel, hepatitis, peptic ulcer disease, splenic infarction, perforated viscus, vulvitis, ovarian torsion, PID, kidney stone, placenta abruption, this is not meant to be an all-inclusive list EKG interpreted by me (3pts min.). @ -None X-rays interpreted by me (1pt min.). @ -None done CT interpreted by me (1pt min.). @ -CT abdomen pelvis interpreted me which revealed no evidence of acute finding. U/S interpreted by me (1pt. min.). @ -None done What testing was considered but not performed or refused? (CT, X-rays, U/S, labs)? Why? @ -UA was to be performed however patient at this time denies any urinary symptoms and would like to go home. She states that she does not think she has a UTI and states that she would not like to have any further testing done at this time. What meds were considered but not given or refused? Why? @ -None Did you discuss the management of the patient with other professionals (professionals i.e. , PA, DBA, lab, RT, psych nurse, high school social science teacher, safety specialist, teacher, chief executive officer, machine adjuster leader case trim)? Give summary @ -No Was smoking cessation discussed for >3mins.? @ -No Was critical care preformed (if so, how long)? @ -No Were there social determinants of health that impacted care today? How? (Homelessness, low income, unemployed, alcoholism, drug addiction, transportation, low edu. Level, literacy, decrease access to med. care, assisted, rehab)? @ -No Was there de-escalation of care discussed even if they declined (Discuss DNR or withdrawal of care, Hospice)? DNR status @ -No What co-morbidities impacted this encounter? (DM, HTN, Smoking, COPD, CAD, Cancer, CVA, ARF, Chemo, Hep., AIDS, mental health diagnosis, sleep apnea, morbid obesity)? @ -None Was patient admitted / discharged? Hospital course, mention meds given and route, prescriptions, significant lab abnormalities, going to OR and other pertinent info. @ -Discharge 68-year-old female presenting to the ED with complaints of abdominal pain for the last 10 days. Was seen by her PCP yesterday due to this and was prescribed omeprazole and dicyclomine however reported no relief and wanted to make sure nothing serious was going on. Labs including CBC, CMP, amylase, lipase unremarkable. CT abdomen pelvis revealed no evidence of acute process. Patient discharged home in stable condition with instructions to closely follow-up with your PCP and to follow-up with Dr. Mchugh as previously recommended by her PCP for EGD and colonoscopy. Discussed return precautions with patient who verbalized agreement. Undiagnosed new problem with uncertain prognosis? @ -No Drug Therapy requiring intensive monitoring for toxicity (Heparin, Nitro, Insulin, Cardizem)? @ -No Were any procedures done? @ -No Diagnosis/symptom? @ -Abdominal pain Acute, or Chronic, or Acute on Chronic? @ -Acute Uncomplicated (without systemic symptoms) or Complicated (systemic symptoms)? @ -Uncomplicated Side effects of treatment? @ -No Exacerbation, Progression, or Severe Exacerbation? @ -No Poses a threat to life or bodily function? How? (Chest pain, USA, MD, pneumonia, PE, COPD, DKA, ARF, appy, cholecystitis, CVA, Diverticulitis, Homicidal, Suicidal, threat to staff... and all critical care pts) @ -No - Lab Data Result diagrams: 11/19/23 19:46 11/19/23 19:46 Lab Results 11/19/23 11/19/23 Range/Units 19:46 19:46 WBC 7.2 (3.8-10.6) k/uL RBC 5.00 (3.80-5.40) m/uL Hgb 14.8 (11.4-16.0) gm/dL Hct 46.8 H (34.0-46.0) % MCV 93.6 (80.0-100.0) fL MCH 29.6 (25.0-35.0) pg MCHC 31.7 (31.0-37.0) g/dL RDW 13.9 (11.5-15.5) % Plt Count 258 (150-450) k/uL MPV 7.6 Neutrophils % 49 % Lymphocytes % 41 % Monocytes % 6 % Eosinophils % 2 % Basophils % 1 % Neutrophils # 3.5 (1.3-7.7) k/uL Lymphocytes # 2.9 (1.0-4.8) k/uL Monocytes # 0.4 (0-1.0) k/uL Eosinophils # 0.1 (0-0.7) k/uL Basophils # 0.1 (0-0.2) k/uL Sodium 138 (137-145) mmol/L Potassium 3.9 (3.5-5.1) mmol/L Chloride 112 H (98-107) mmol/L Carbon Dioxide 21 L (22-30) mmol/L Anion Gap 5 mmol/L BUN 9 (7-17) mg/dL Creatinine 0.63 (0.52-1.04) mg/dL Est GFR (CKD-EPI)AfAm >90 (>60 ml/min/1.73 sqM) Est GFR (CKD-EPI)NonAf >90 (>60 ml/min/1.73 sqM) Glucose 92 (74-99) mg/dL Calcium 8.8 (8.4-10.2) mg/dL Total Bilirubin 0.5 (0.2-1.3) mg/dL AST 25 (14-36) U/L ALT 18 (4-34) U/L Alkaline Phosphatase 64 (38-126) U/L Total Protein 6.3 (6.3-8.2) g/dL Albumin 3.6 (3.5-5.0) g/dL Amylase 72 (30-110) U/L Lipase 190 (23-300) U/L Disposition Clinical Impression: Abdominal pain Disposition: HOME SELF-CARE Condition: Good Instructions (If sedation given, give patient instructions): Abdominal Pain (ED) Additional Instructions: Please return to the Emergency Department if symptoms worsen or any other concerns. Please follow-up with your PCP and Dr. Toribio. Continue medications previously prescribed by your PCP. Is patient prescribed a controlled substance at d/c from ED?: No Referrals: Yanique Bragg MD [Primary Care Provider] - 1-2 days Time of Disposition: 23:07
[2023-11-19 20:03] LABS: Basophils # (A) 0.1 k/uL (0-0.2); Basophils % (A) 1 %; Eosinophils # (A) 0.1 k/uL (0-0.7); Eosinophils % (A) 2 %; HCT 46.8 % (34.0-46.0); HGB 14.8 gm/dL (11.4-16.0); Lymphocytes # (A) 2.9 k/uL (1.0-4.8); Lymphocytes % (A) 41 %; MCH 29.6 pg (25.0-35.0); MCHC 31.7 g/dL (31.0-37.0); MCV 93.6 fL (80.0-100.0); Mean Platelet Volume 7.6; Monocytes # (A) 0.4 k/uL (0-1.0); Monocytes % (A) 6 %; Neutrophils # (A) 3.5 k/uL (1.3-7.7); Neutrophils % (A) 49 %; Platelet Count 258 k/uL (150-450); RDW 13.9 % (11.5-15.5); WBC 7.2 k/uL (3.8-10.6)
[2023-11-19 20:20] LABS: ALT 18 U/L (4-34); AST 25 U/L (14-36); African American GFR (CKD) >90 (>60 ml/min/1.73 sqM); Albumin 3.6 g/dL (3.5-5.0); Alkaline Phosphatase 64 U/L (38-126); Amylase 72 U/L (30-110); Anion Gap 5 mmol/L; Blood Urea Nitrogen 9 mg/dL (7-17); Calcium 8.8 mg/dL (8.4-10.2); Carbon Dioxide 21 mmol/L (22-30); Chloride 112 mmol/L (98-107); Glucose 92 mg/dL (74-99); Lipase 190 U/L (23-300); Non-African American GFR(CKD) >90 (>60 ml/min/1.73 sqM); Potassium 3.9 mmol/L (3.5-5.1); Sodium 138 mmol/L (137-145); Total Bilirubin 0.5 mg/dL (0.2-1.3); Total Protein 6.3 g/dL (6.3-8.2)
[2023-11-19] MEDS: SODIUM CHLORIDE 0.9% 1,000 ML IV STA (20:48)
[2023-11-19] MEDS: ONDANSETRON 4 MG/2 ML VIAL IVP STA (20:50)
[2023-11-19] MEDS: KETOROLAC 15 MG/ML 1 ML VIAL IVP STA (20:50)
--- NOTE | 2023-11-19 21:34 | CT ---
EXAMINATION TYPE: CT abdomen pelvis w con DATE OF EXAM: 11/19/2023 COMPARISON: None HISTORY: Upper abdominal pain onset today with n/v/d. CT DLP: 548.1 mGycm Automated exposure control for dose reduction was used. TECHNIQUE: Helical acquisition of images was performed from the lung bases through the pelvis. CONTRAST: Performed without Oral Contrast and with IV Contrast, patient injected with 100 cc mL of Isovue 300. FINDINGS: The lung bases are clear. The gallbladder is normal without distention, wall thickening, pericholecystic fluid or gallstones. T here is no biliary ductal dilatation. There is no focal mass or organomegaly involving the liver, pancreas, spleen or adrenal glands. There is no solid renal mass or hydronephrosis and there is homogeneous contrast enhancement of the r enal parenchyma. The right kidney is markedly atrophic. The caliber the abdominal aorta is normal is no retroperitoneal adenopathy or hemorrhage. The bowel loops are normal in caliber and there is no evidence of dilatation or obstruction. No infla mmatory changes are identified in the bowel wall or mesentery. There is no free intraperitoneal air or fluid. No pelvic mass, free fluid, abscess or adenopathy. 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 IMPRESSION: 1. Markedly atrophic right kidney. 2. Surgical absence of the uterus. 3. No acute changes within the abdomen or pelvis
[2023-11-19 23:39] VITALS: BP 145/98; PULSE 63; RESP 18; TEMP 98
== END 2023-11-19 23:15 | disposition home or self-care (01) ==
LOC: EC 18:49
DX: R10.9 Unspecified abdominal pain (principal); F17.200 Nicotine dependence, unspecified, uncomplicated; Z88.1 Allergy status to other antibiotic agents
CPT/HCPCS: 99284 ×2; 96374 ×2; 96375 ×2; 96361 ×3; 36415; 80053; 82150; 83690; 85025; 74177; J2405; J1885; Q9967

== ENCOUNTER → 2023-11-21 | Outpatient (CLI) | payer MEDICARE ==
--- NOTE | 2023-11-21 11:40 | XR ---
EXAMINATION TYPE: XR abdomen 2V DATE OF EXAM: 11/21/2023 COMPARISON: CT scan 11/19/2023 HISTORY: Pain TECHNIQUE: Two view abdominal series FINDINGS: The osseous structures are intact. The bowel gas pattern is nonspecific. Curvature of the spine. Ret ained fecal debris. The bladder appears distended. Vascular calcifications are seen. Arthropathy of t he hips. Postsurgical changes overlying the heart. IMPRESSION: 1. Nonspecific abdomen with no obstruction. Correlate for constipation.
[2023-11-21 18:57] LABS: Gliadin AB IgA, Deaminated Negative (Negative); Gliadin AB IgA, Unit 0.6 U/mL; Gliadin AB IgG, Deaminated Negative (Negative); Gliadin AB IgG, Unit <0.4 U/mL
== END | disposition home or self-care (01) ==
LOC: RADXRMAIN 10:48
PROVIDERS: ATTEND Nurse Practitioner Family
DX: K59.00 Constipation, unspecified (principal)
CPT/HCPCS: 74019; 83516; 85652; 86140

== ENCOUNTER 2024-03-12 06:34 | Day surgery (SDC) | payer MEDICARE ==
[2024-03-07 16:12] VITALS: BMI 19.3
[~2024-03-12 06:34] MED LIST changes: -HYDROmorphone 0.5 MG/0.5 ML SYRINGE IVP PRN; +LACTATED RINGERS 1,000 ML IV SCH; -ONDANSETRON 4 MG/2 ML VIAL IVP ONE; -ceFAZolin 1,000 MG in SODIUM CHLORIDE 0.9% IRRIGATIO 1,000 ML IRRIGATION PRN; -droPERidol 5 MG/2 ML VIAL IVP ONE
[2024-03-12] MEDS: IV FLUID CONTINUATION 1,000 ML IV ONE (06:56)
[2024-03-12 07:14] VITALS: RESP 16; TEMP 97.6
[2024-03-12] MEDS ORDERED: LIDOCAINE 1% INJ 10MG/ML (20 ML MDV) ONE (07:21)
[2024-03-12] MEDS ORDERED: PROPOFOL 10 MG/ML 20 ML VIAL IV ONE (07:21)
--- NOTE | 2024-03-12 07:48 | P.PCN ---
Date of Procedure: 03/12/24 Procedure(s) Performed: Brief history: Patient is a pleasant 68-year-old white male scheduled for an elective upper endoscopy as well as colonoscopy as a part of evaluation of abdominal pain, intermittent nausea vomiting and change in bowel habits screening for Procedure performed: Esophagogastroduodenoscopy with biopsy Colonoscopy with biopsy Preoperative diagnosis: Abdominal pain/nausea vomiting Change in bowel habits Anesthesia: MAC Procedure: After informed consent was obtained from the patient was brought into the endoscopy unit and IV sedation was administered by anesthesia under continuous monitoring. Initially upper endoscopy was done. The Olympus GF 160 video endoscope was inserted inserted into the mouth and esophagus intubated without any difficulty and was gradually advanced into the stomach and duodenum and carefully examined. The bulb and second part of the duodenum appeared normal. The scope was then withdrawn into the stomach adequately insufflated with air and upon careful examination the antrum had mild gastritis and biopsies were done from this area. Mucosa of the body, cardia and fundus appeared normal. The scope was then withdrawn into the esophagus. Small hiatal hernia noted. The GE junction was located at 35 cm to the incisors. It appeared regular with no erythema erosions or ulcerations. Rest of the esophagus appeared normal. The distal esophagus patient tolerated the procedure well. At this time the patient continued to remain sedation. Initial digital rectal examination was normal. Olympus CF 160 video colonoscope was then inserted into the rectum and gradually advanced to the cecum without any difficulty. Careful examination was performed as the scope was gradually being withdrawn. The prep was excellent. The cecum, ascending colon, transverse colon, descending colon, appeared normal. The distal sigmoid colon there were 2 polyps measuring 5 mm in size both which were removed by cold biopsy. Rest of the sigmoid colon and rectum appeared normal. Retroflexion was performed in the rectum and no lesions were noted. Patient tolerated the procedure well. Impression: 1. Upper endoscopy revealed mild antral gastritis and small hiatal hernia 2. Colonoscopy revealed 5 mm x 2 distal sigmoid colon polyp status post removed by cold biopsy Recommendations: Findings of this examination were discussed with the patient as well as her family. She was advised to follow-up with the biopsy results. If the biopsy reveals adenoma she can have repeat colonoscopy in 5 years.
[2024-03-12 08:06] VITALS: BP 124/74; PULSE 64
== END 2024-03-12 08:37 | disposition home or self-care (01) ==
LOC: ORWHC2ENDO 06:34
PROVIDERS: ATTEND Internal Medicine Gastroenterology
DX: K29.50 Unspecified chronic gastritis without bleeding (principal); K21.00 Gastro-esophageal reflux disease with esophagitis, without bleeding; K63.5 Polyp of colon; K44.9 Diaphragmatic hernia without obstruction or gangrene; D72.10 Eosinophilia, unspecified; J44.9 Chronic obstructive pulmonary disease, unspecified; F17.210 Nicotine dependence, cigarettes, uncomplicated; M19.90 Unspecified osteoarthritis, unspecified site; F32.A Depression, unspecified; F41.9 Anxiety disorder, unspecified; I67.9 Cerebrovascular disease, unspecified; Z79.02 Long term (current) use of antithrombotics/antiplatelets; Z79.899 Other long term (current) drug therapy; Z88.1 Allergy status to other antibiotic agents
CPT/HCPCS: 43239; 45380; 88305

== ENCOUNTER → 2024-06-24 | Outpatient (CLI) | payer MEDICARE ==
--- NOTE | 2024-06-24 10:54 | US ---
EXAMINATION TYPE: US arterial LE multi level DATE OF EXAM: 06/24/2024 10:22 AM COMPARISONS: None. CLINICAL INDICATION: Female, 68 years old with history of R20.2 PARESTHESIA OF SKIN; History of: Smoker: Current Hypertension: No Diabetic: No Hyperlipidemia: Yes TIA/CVA: Yes Previous Vascular Surgery: Yes AK: No Vascular Ulcers: No Claudication: Yes Gangrene: No FINDINGS: Doppler Waveforms: Right: Left: Brachial Artery systolic pressure: Right: 150 Left: Deferred Posterior Tibial artery systolic pressure: Right: 167 Left: 167 Dorsalis Pedis artery systolic pressure: Right: 178 Left: 152 Ankle-Brachial Indices: Right: 1.19 Left: 1.11 IMPRESSION: 1. No suspicious changes to suggest stenosis [facility], , 06/24/2024 10:52 AM
== END | disposition home or self-care (01) ==
LOC: RADUSWWP 09:41
PROVIDERS: ATTEND Student in an Organized Health Care Education/Training Program
DX: R20.2 Paresthesia of skin (principal); M79.661 Pain in right lower leg; F17.210 Nicotine dependence, cigarettes, uncomplicated; E78.5 Hyperlipidemia, unspecified
CPT/HCPCS: 93922

== ENCOUNTER → 2024-08-15 | Outpatient (CLI) | payer MEDICARE ==
--- NOTE | 2024-08-15 13:19 | CTL ---
EXAMINATION TYPE: CT Low Dose Lung DATE OF EXAM ORDERED: 08/15/2024 COMPARISON: Prior chest CT August 15, 2023 and older studies. CLINICAL INDICATION: Female, 68 years old with history of Z12.2 SCREENING LUNG CA F17.210 CURRENT SMO KER; [facility], current smoker 1/2 PPD 45 years, Lung cancer screening, History of Smoking/tobacco use. TECHNIQUE: Low dose computed tomography scan was performed through the chest at 1 mm thick sections a nd reconstructed images in multiple planes at 1 mm and [address] DLP: 64.[address] CTDI: 1.6 mGy Automated exposure control for dose reduction was used. CT DIAGNOSTIC QUALITY: Satisfactory FINDINGS: Nodules: Some interval growth in the right mid middle lobe pulmonary nodule which now measures 11 x 9 mm on axial image 198 and measured 8 x 7 mm on prior studies. There is 2 mm anterior right lower lobe nodule axial image 232. No significant new greater than 4 mm noncalcified pulmonary nodules. LUNGS: COPD: Severity: Mild Fibrosis: Severity: None Lymph nodes: None Other findings: None RIGHT PLEURAL SPACE: Effusion: None Calcification: None Thickening: None Pneumothorax: None LEFT PLEURAL SPACE: Effusion: None Calcification: None Thickening: None Pneumothorax: None HEART: Heart Size: Normal Coronary Calcification: Severe Pericardial Effusion: None ASD closure device redemonstrated. OTHER FINDINGS: Upper abdomen: Significant asymmetric atrophy to the right kidney is redemonstrated. A 2.1 cm simple cyst in the left kidney is partially imaged Bony thorax: None Supraclavicular region: None Other: Bilateral breast implants are redemonstrated. Suspect intracapsular rupture on the left with l inguini sign similar to prior. IMPRESSION: Mild emphysematous change with interval growth in the right midlung pulmonary nodule now measuring [address] LUNG RAD AND [address] CHEST RECOMMENDATION: Lung-Rad 4B or 4X Very Suspicious: Follow-up Chest CT with o r without contrast or PET/CT and/or tissue sampling. PET/CT may be used when there is a > 8 mm solid component. PET/CT follow-up advised to further evaluate. S Modifier (other clinically significant findings): S Severe three-vessel coronary artery desiccation redemonstrated and should be correlated with addition al cardiac risk factors. Intracapsular left breast implant rupture redemonstrated. Consider plastic s urgery evaluation. [facility], , 08/15/2024 1:17 PM
== END | disposition home or self-care (01) ==
LOC: RADCTMAIN 12:04
PROVIDERS: ATTEND Internal Medicine
DX: Z12.2 Encounter for screening for malignant neoplasm of respiratory organs (principal); F17.210 Nicotine dependence, cigarettes, uncomplicated; J43.9 Emphysema, unspecified; R91.1 Solitary pulmonary nodule
CPT/HCPCS: 71271

== ENCOUNTER → 2024-10-02 | Outpatient (CLI) | payer MEDICARE ==
--- NOTE | 2024-10-03 15:46 | PE ---
EXAMINATION TYPE: PET CT fusion skull to thigh DATE OF EXAM: 10/02/2024 CLINICAL INDICATION:Female, 68 years old with history of R91.1; TECHNIQUE: Following the intravenous administration of 8.19 mCi of F-18 FDG, whole body images are performed from the skull base to the Mid thigh. Images are reviewed on the computer in the coronal, axial, and sagittal planes. Reconstructed rotating images are created on independent workstation and reviewed on the computer. A non-contrast CT is performed in conjunction with the PET scan. Glucose level 86 mg/dL CT DLP: 487 mGycm, Automated exposure control for dose reduction was used. COMPARISON: CT 08/15/2024, PET/CT None, MRI: None FINDINGS: Mediastinal SUV mean is 3.2. Hepatic parenchyma SUV mean is 2.5. SKULL BASE AND NECK: No suspicious radiotracer activity. CHEST, MEDIASTINUM, AND HILAR REGION: 10 mm right midlung pulmonary nodule in the right upper lobe along the major fissure max SUV 0.9 No suspicious radiotracer activity. ABDOMEN AND PELVIS: No suspicious radiotracer activity. MUSCULOSKELETAL STRUCTURES: No suspicious radiotracer activity. Uptake along the right lower ribs suspicious for fractures. OTHER CT: Atherosclerosis of the carotid bifurcations. Postsurgical changes to the cervical spine. Bilateral br east implants left appears to have an intracapsular rupture. Dilation of the ascending thoracic aorta up to 40 mm. Severe coronary artery atherosclerosis. Atrial septal defect occlusion device is presen t. Atrophic right kidney scattered colonic diverticulosis. IMPRESSION: 1. Right midlung nodule Max SUV at background levels likely representing granulomatous nodule and le ss likely malignancy. Continued surveillance imaging with CT recommended. No suspicious radiotracer a ctivity. 2. Multiple right lower rib fractures with callus formation on CT imaging. [facility], , 10/03/2024 3:44 PM
== END | disposition home or self-care (01) ==
LOC: RADPETMAIN 07:52
PROVIDERS: ATTEND Internal Medicine
DX: S22.41XD Multiple fractures of ribs, right side, subsequent encounter for fracture with routine healing (principal); R91.1 Solitary pulmonary nodule
CPT/HCPCS: 78815; A9552